=== PATIENT | female | born 1940 | race Caucasian/White ===

== ENCOUNTER 2017-06-28 10:34 | Inpatient (IN) | payer MEDICARE ==
[2017-06-28] MEDS ORDERED: SODIUM CHLORIDE 0.9% 1,000 ML IV STA (10:39)
[2017-06-28] MEDS ORDERED: SODIUM CHLORIDE 0.9% 500 ML IV STA (10:39)
--- NOTE | 2017-06-28 10:42 | ED ---
General Adult HPI - General Stated complaint: Near Syncope Time Seen by Provider: 06/28/17 10:39 Source: patient, EMS, RN notes reviewed - History of Present Illness Initial comments: 77-year-old female with no significant past medical history presents for evaluation of syncopal episode. Patient was at the grocery store, felt a warm sensation over her body, and passed out. No preceding chest pain or palpitations. No seizure activity according to EMS. EMS reported sinus tachycardia with stable blood pressure on initial evaluation. Patient was pale and diaphoretic. Color improved during transport. Patient denies any chest pain, mild cough and shortness of breath. No vomiting diarrhea. No abdominal pain. Patient has no complaints, no headache, no neck pain. No injury from the fall. Patient is not currently on any medication. She denies melena or rectal bleeding. She does report a 40 pound weight loss over the past one year and decreased appetite. - Related Data Home Medications Medication Instructions Recorded Confirmed Ibuprofen [Advil] 200 mg PO Q8HR PRN 06/28/17 06/28/17 Allergies Allergy/AdvReac Type Severity Reaction Status Date / Time No Known Allergies Allergy Verified 06/28/17 11:38 Review of Systems ROS Statement: Those systems with pertinent positive or pertinent negative responses have been documented in the HPI. ROS Other: All systems not noted in ROS Statement are negative. General Exam General appearance: alert, in no apparent distress Head exam: Present: atraumatic, normocephalic Eye exam: Present: normal appearance, PERRL, EOMI Neck exam: Present: normal inspection. Absent: tenderness, meningismus Respiratory exam: Present: normal lung sounds bilaterally. Absent: respiratory distress, wheezes Cardiovascular Exam: Present: normal rhythm, tachycardia GI/Abdominal exam: Present: soft. Absent: distended, tenderness, guarding, rebound Extremities exam: Present: normal inspection, normal capillary refill. Absent: pedal edema Back exam: Present: normal inspection, full ROM. Absent: tenderness Neurological exam: Present: alert, oriented X3, CN II-XII intact. Absent: motor sensory deficit Psychiatric exam: Present: normal affect, normal mood Skin exam: Present: warm, dry, intact, pallor. Absent: cyanosis, diaphoretic Course Vital Signs 06/28/17 06/28/17 10:48 12:00 Temperature 97.5 F L Pulse Rate 83 Pulse Rate [ 96 Sitting] Pulse Rate [ 103 H Standing] Pulse Rate [ 83 Supine] Respiratory 18 Rate Blood Pressure 156/67 Blood Pressure 149/65 [Sitting] Blood Pressure 164/66 [Standing] Blood Pressure 166/77 [Supine] O2 Sat by Pulse 100 Oximetry EKG Findings - EKG Comments: EKG Findings:: EKG shows normal sinus rhythm, moderate voltage criteria for LVH , ventricular rate 82, IL interval 156, QRS duration 84, QTC 448 no signs of acute ischemia Medical Decision Making - Medical Decision Making 77-year-old female presents with syncopal episode. She does appear pale examination vital signs are stable, EKG shows normal sinus rhythm no signs of arrhythmia or ischemia. Laboratory studies reveal normal white blood cell count , hemoglobin is found to be 5.6, this is likely the explanation of her syncopal episode. She denies any rectal bleeding, denies hematuria. Hemoccult is negative although there was minimal stool in the rectal vault. Urinalysis is pending. Patient is transfused 2 units of packed RBCs in the emergency department. She will be admitted for further evaluation and treatment. Diagnosis: Syncope, anemia - Lab Data Result diagrams: 06/28/17 11:51 06/28/17 11:51 Lab Results 06/28/17 06/28/17 06/28/17 Range/Units 10:41 11:51 11:51 WBC 8.9 (3.8-10.6) k/uL RBC 3.55 L (3.80-5.40) m/uL Hgb 5.6 L* (11.4-16.0) gm/dL Hct 23.2 L (34.0-46.0) % MCV 65.4 L (80.0-100.0) fL MCH 15.7 L (25.0-35.0) pg MCHC 24.0 L (31.0-37.0) g/dL RDW 17.4 H (11.5-15.5) % Plt Count 665 H (150-450) k/uL Neutrophils % 78 % Lymphocytes % 12 % Monocytes % 6 % Eosinophils % 2 % Basophils % 1 % Neutrophils # 7.0 (1.3-7.7) k/uL Lymphocytes # 1.1 (1.0-4.8) k/uL Monocytes # 0.5 (0-1.0) k/uL Eosinophils # 0.2 (0-0.7) k/uL Basophils # 0.1 (0-0.2) k/uL Hypochromasia Marked Anisocytosis Slight Microcytosis Marked Sodium 142 140 (137-145) mmol/L Potassium 3.3 L 4.4 (3.5-5.1) mmol/L Chloride 116 H 108 H (98-107) mmol/L Carbon Dioxide 17 L 20 L (22-30) mmol/L Anion Gap 9 12 mmol/L BUN 15 19 H (7-17) mg/dL Creatinine 0.81 0.99 (0.52-1.04) mg/dL Est GFR (MDRD) Af Amer >60 >60 (>60 ml/min/1.73 sqM) Est GFR (MDRD) Non-Af >60 54 (>60 ml/min/1.73 sqM) Glucose 98 103 H (74-99) mg/dL Calcium 7.4 L 9.7 (8.4-10.2) mg/dL Magnesium 1.6 2.1 (1.6-2.3) mg/dL Total Bilirubin 0.2 0.4 (0.2-1.3) mg/dL AST 11 L 19 (14-36) U/L ALT 25 28 (9-52) U/L Alkaline Phosphatase 43 64 (38-126) U/L Total Creatine Kinase (30-135) U/L CK-MB (CK-2) (0.0-2.4) ng/mL CK-MB (CK-2) Rel Index Troponin I (0.000-0.034) ng/mL Total Protein 4.8 L 6.7 (6.3-8.2) g/dL Albumin 2.4 L 3.6 (3.5-5.0) g/dL Stool Occult Blood (Negative) 06/28/17 06/28/17 Range/Units 11:51 12:32 WBC (3.8-10.6) k/uL RBC (3.80-5.40) m/uL Hgb (11.4-16.0) gm/dL Hct (34.0-46.0) % MCV (80.0-100.0) fL MCH (25.0-35.0) pg MCHC (31.0-37.0) g/dL RDW (11.5-15.5) % Plt Count (150-450) k/uL Neutrophils % % Lymphocytes % % Monocytes % % Eosinophils % % Basophils % % Neutrophils # (1.3-7.7) k/uL Lymphocytes # (1.0-4.8) k/uL Monocytes # (0-1.0) k/uL Eosinophils # (0-0.7) k/uL Basophils # (0-0.2) k/uL Hypochromasia Anisocytosis Microcytosis Sodium (137-145) mmol/L Potassium (3.5-5.1) mmol/L Chloride (98-107) mmol/L Carbon Dioxide (22-30) mmol/L Anion Gap mmol/L BUN (7-17) mg/dL Creatinine (0.52-1.04) mg/dL Est GFR (MDRD) Af Amer (>60 ml/min/1.73 sqM) Est GFR (MDRD) Non-Af (>60 ml/min/1.73 sqM) Glucose (74-99) mg/dL Calcium (8.4-10.2) mg/dL Magnesium (1.6-2.3) mg/dL Total Bilirubin (0.2-1.3) mg/dL AST (14-36) U/L ALT (9-52) U/L Alkaline Phosphatase (38-126) U/L Total Creatine Kinase 29 L (30-135) U/L CK-MB (CK-2) 0.3 (0.0-2.4) ng/mL CK-MB (CK-2) Rel Index 1.0 Troponin I <0.012 (0.000-0.034) ng/mL Total Protein (6.3-8.2) g/dL Albumin (3.5-5.0) g/dL Stool Occult Blood Negative (Negative) Disposition Clinical Impression: Syncope, Symptomatic anemia Disposition: ADMITTED IP TO THIS [facility] Condition: Stable Referrals: None,Stated [Primary Care Provider] - 1-2 days Decision to Admit Reason: Admit from EC Decision Date: 06/28/17 Decision Time: 13:34
--- NOTE | 2017-06-28 11:22 | XR ---
EXAMINATION TYPE: XR chest 2V DATE OF EXAM: 06/28/2017 COMPARISON: NONE TECHNIQUE: PA and lateral views submitted. HISTORY: Shortness of breath FINDINGS: The lungs are clear and there is no pneumothorax, pleural effusion, or focal pneumonia. Biapical pl eural thickening and calcification. Hyperinflation noted. Atherosclerotic change aorta. Degenerative change of the spine. No overt failure. No focal pneumonia. Diffuse osteopenia and arthropathy of the shoulders. IMPRESSION: 1. No acute process. Correlate for COPD. Pleural thickening and calcification suggestive possibility of asbestosis related disease. Correlate clinically.
[2017-06-28 11:25] LABS: Anion Gap 9 mmol/L
[2017-06-28 12:21] LABS: Anisocytosis Slight; Basophils # (A) 0.1 k/uL (0-0.2); Basophils % (A) 1 %; Eosinophils # (A) 0.2 k/uL (0-0.7); Eosinophils % (A) 2 %; HCT 23.2 % (34.0-46.0); Hypochromasia Marked; Lymphocytes # (A) 1.1 k/uL (1.0-4.8); Lymphocytes % (A) 12 %; MCH 15.7 pg (25.0-35.0); MCV 65.4 fL (80.0-100.0); Mean Platelet Volume 6.1; Microcytosis Marked; Monocytes # (A) 0.5 k/uL (0-1.0); Monocytes % (A) 6 %; Neutrophils % (A) 78 %; Platelet Count 665 k/uL (150-450); RBC 3.55 m/uL (3.80-5.40); RDW 17.4 % (11.5-15.5); WBC 8.9 k/uL (3.8-10.6)
[2017-06-28 12:23] LABS: HGB 5.6 gm/dL (11.4-16.0)
[2017-06-28 12:55] LABS: ALT 28 U/L (9-52); AST 19 U/L (14-36); Albumin 3.6 g/dL (3.5-5.0); Alkaline Phosphatase 64 U/L (38-126); Anion Gap 12 mmol/L; Blood Urea Nitrogen 19 mg/dL (7-17); Calcium 9.7 mg/dL (8.4-10.2); Carbon Dioxide 20 mmol/L (22-30); Chloride 108 mmol/L (98-107); Glucose 103 mg/dL (74-99); Magnesium 2.1 mg/dL (1.6-2.3); Potassium 4.4 mmol/L (3.5-5.1); Sodium 140 mmol/L (137-145); Total Bilirubin 0.4 mg/dL (0.2-1.3); Total Protein 6.7 g/dL (6.3-8.2)
[2017-06-28 12:56] LABS: Creatine Kinase 29 U/L (30-135); Creatine Kinase MB 0.3 ng/mL (0.0-2.4); Troponin I <0.012 ng/mL (0.000-0.034)
[2017-06-28 13:09] LABS: Glucose 98 mg/dL (74-99)
[2017-06-28 13:10] LABS: Potassium 3.3 mmol/L (3.5-5.1); Sodium 142 mmol/L (137-145)
[2017-06-28 13:14] LABS: Carbon Dioxide 17 mmol/L (22-30); Chloride 116 mmol/L (98-107)
[2017-06-28 13:15] LABS: Blood Urea Nitrogen 15 mg/dL (7-17)
[2017-06-28 13:16] LABS: Calcium 7.4 mg/dL (8.4-10.2); Magnesium 1.6 mg/dL (1.6-2.3)
[2017-06-28 13:17] LABS: Albumin 2.4 g/dL (3.5-5.0); Total Bilirubin 0.2 mg/dL (0.2-1.3); Total Protein 4.8 g/dL (6.3-8.2)
[2017-06-28 13:18] LABS: ALT 25 U/L (9-52); AST 11 U/L (14-36)
[2017-06-28 13:19] LABS: Alkaline Phosphatase 43 U/L (38-126)
[2017-06-28] MEDS ORDERED: NALOXONE 0.4 MG/ML 1 ML VIAL IV PRN (13:34)
[2017-06-28 13:47] LABS: Prothrombin Time 10.3 sec (9.0-12.0)
[2017-06-28 14:04] LABS: Partial Thromboplastin Time 21.5 sec (22.0-30.0)
--- NOTE | 2017-06-28 14:46 | P.HPIM ---
History of Present Illness H&P Date: 06/28/17 Chief Complaint: Past out arrived here for by EMS The patient is a 77-year-old female with no significant past medical history who presents to the ER via EMS with chief complaint of passing out. Apparently the patient was at [employer] doing some shopping when she became lightheaded and dizzy and reportedly passed out, there is no reports of head trauma and the patient is currently denying any pain, she was apparently out for up to 10 minutes, there is no loss of bowel or bladder control. On arrival EMS describes the patient is pale and diaphoretic. The patient had been previously healthy but has not seen a doctor in at least 30 years, she had been complaining of increasing weakness and fatigue and has been having a poor appetite and reports approximately 40 pound unintentional weight loss over the last year, she denies any smoking, or drinking,she denies any abdominal pain, Bright red blood per rectum or dark melanotic stools. In the ER the patient was noted to have a significant macrocytic anemia with a hemoglobin of 5.9 and was slightly tachycardic in the low 100s. Hemoccult was negative Review of Systems Constitutional: Patient reports no fever, no chills, Eyes: Patient reports no double vision, no visual changes ENT: Patient reports no rhinorrhea, no post nasal drip, no sore throat Cardiovascular: Patient reports no chest, no edema, no palpitations, no syncope , no orthopnea, no paroxysmal nocturnal dyspnea. Respiratory: Patient reports no dyspnea, no cough, no wheeze Gastrointestinal: Patient reports no nausea, no vomiting, no constipation, no diarrhea Genitourinary: Patient reports no dysuria, no urinary frequency, no hematuria. Musculoskeletal: Patient reports no unusual joint pain, no joint swelling or weakness. Patient reports no muscular pain. Psychiatric: Patient reports no changes in mood, no sleeping problems. Patient reports no changes in memory. Endocrine: Patient reports no thirst, no polyuria, no cold intolerance, no heat intolerance. Neurological: Patient reports no unusual paresthesias, no seizures, no paresis , no paralysis, no facila droop, no headache. Heme/Lymphatic: Patient reports no easy bruising, no bleeding tendency, no lymphadenopathy. Allergic/ Immunologic: Patient reports no recent allergic reactions or immunologic history. Skin: Patient reports no rashes or unusual lesions. Past Medical History Past Medical History: No Reported History History of Any Multi-Drug Resistant Organisms: None Reported Past Surgical History: Appendectomy Past Psychological History: No Psychological Hx Reported Smoking Status: Never smoker Past Alcohol Use History: None Reported Past Drug Use History: None Reported Medications and Allergies Home Medications Medication Instructions Recorded Confirmed Type Ibuprofen [Advil] 200 mg PO Q8HR PRN 06/28/17 06/28/17 History Allergies Allergy/AdvReac Type Severity Reaction Status Date / Time No Known Allergies Allergy Verified 06/28/17 11:38 Physical Exam Vitals: Vital Signs Temp Pulse Pulse Pulse Pulse Resp BP 06/28/17 13:38 71 18 161/71 06/28/17 12:00 96 103 H 83 06/28/17 10:48 97.5 F L 83 18 156/67 BP BP BP Pulse Ox 06/28/17 13:38 98 06/28/17 12:00 149/65 164/66 166/77 06/28/17 10:48 100 Intake and Output 06/27/17 06/28/17 06/28/17 22:59 06:59 14:59 Other: Weight 61.689 kg Patient Weight 06/29/17 06:59 Weight 61.689 kg Constitutional: No acute distress, conversant, pleasant Eyes: Anicteric sclerae, moist conjunctiva, no lid-lag, PERRLA ENMT: NC/AT,Oropharynx clear, no erythema, exudates Neck:Supple, FROM, no masses, or JVD, No carotid bruits; No thyromegaly Lungs: Clear to auscultation, Clear to percussion, Normal respiratory effort, no accessory muscle use Cardiovascular: Heart regular in rate and rhythm, No murmurs, gallops, or rubs no peripheral edema Abdominal: Soft Nontender, nom distended, no guarding, no rebound or rigidity, Normoactive bowel sounds No hepatomegaly, No splenomegaly, No palpable mass No abdominal wall hernia noted Skin: Normal temperature, tone, texture, turgor, No induration No subcutaneous nodules, No rash, lesions, No ulcers Extremities:No digital cyanosis No clubbing, Pedal pulses intact and symmetrical Radial pulses intact and symmetrical Normal gait and station, No calf tenderness Psychiatric: Alert and oriented to person, place and time, Appropriate affect Intact judgement Neuro: Muscles Strength 5/5 in all 4 extremities, Sensation to light touch grossly present throughout, Cranial nerves II-XII grossly intact. No focal sensory deficits Results CBC & Chem 7: 06/28/17 11:51 06/28/17 11:51 Labs: Abnormal Lab Results - Last 24 Hours (Table) 06/28/17 06/28/17 06/28/17 Range/Units 10:41 11:51 11:51 RBC 3.55 L (3.80-5.40) m/uL Hgb 5.6 L* (11.4-16.0) gm/dL Hct 23.2 L (34.0-46.0) % MCV 65.4 L (80.0-100.0) fL MCH 15.7 L (25.0-35.0) pg MCHC 24.0 L (31.0-37.0) g/dL RDW 17.4 H (11.5-15.5) % Plt Count 665 H (150-450) k/uL APTT (22.0-30.0) sec Potassium 3.3 L (3.5-5.1) mmol/L Chloride 116 H 108 H (98-107) mmol/L Carbon Dioxide 17 L 20 L (22-30) mmol/L BUN 19 H (7-17) mg/dL Glucose 103 H (74-99) mg/dL Calcium 7.4 L (8.4-10.2) mg/dL AST 11 L (14-36) U/L Total Creatine Kinase (30-135) U/L Total Protein 4.8 L (6.3-8.2) g/dL Albumin 2.4 L (3.5-5.0) g/dL 06/28/17 06/28/17 Range/Units 11:51 13:11 RBC (3.80-5.40) m/uL Hgb (11.4-16.0) gm/dL Hct (34.0-46.0) % MCV (80.0-100.0) fL MCH (25.0-35.0) pg MCHC (31.0-37.0) g/dL RDW (11.5-15.5) % Plt Count (150-450) k/uL APTT 21.5 L (22.0-30.0) sec Potassium (3.5-5.1) mmol/L Chloride (98-107) mmol/L Carbon Dioxide (22-30) mmol/L BUN (7-17) mg/dL Glucose (74-99) mg/dL Calcium (8.4-10.2) mg/dL AST (14-36) U/L Total Creatine Kinase 29 L (30-135) U/L Total Protein (6.3-8.2) g/dL Albumin (3.5-5.0) g/dL Assessment and Plan (1) Symptomatic anemia Current Visit: Yes Status: Acute Code(s): D64.9 - ANEMIA, UNSPECIFIED SNOMED Code(s): 028633104 (2) Syncope Current Visit: Yes Status: Acute Code(s): R55 - SYNCOPE AND COLLAPSE SNOMED Code(s): 969888463 (3) Unintentional weight loss Current Visit: Yes Status: Acute Code(s): R63.4 - ABNORMAL WEIGHT LOSS SNOMED Code(s): 124856111 Plan: Patient is admitted with severe symptomatic microcytic anemia with a hemoglobin of 5.5 after having an syncopal episode. She stopped and crossed she'll be transfused 2 units of packed RBCs, will check iron studies, coagulation profile and consult hematology oncology for further recommendations. We'll continue with the workup for syncope with a CT of the head and a 2-D echocardiogram, will also check it TSH, place the patient on fall precautions and consult physical therapy to evaluate and treat her weakness. Will also order CT abdomen/ pelvis w/o contrast to eval unintentional weight loss. Continue to follow her clinical course
--- NOTE | 2017-06-28 15:01 | CT ---
EXAMINATION TYPE: CT brain wo con DATE OF EXAM: 06/28/2017 COMPARISON: NONE HISTORY: Near syncopal episode CT DLP: 927 mGycm Automated exposure control for dose reduction was used. FINDINGS: There is no acute intracranial hemorrhage or midline shift identified. There is diffuse v entricular and sulcal prominence consistent with diffuse age-related cerebral atrophy. There is low- attenuation in the periventricular white matter consistent with chronic small vessel ischemic change. Specifically within the anterior limb of the left internal capsule CSF attenuated old lacunar injury is noted. Moderate mucosal thickening is seen within the posterior ethmoidal and right sphenoid sinu ses. 9 mm mucosal retention cyst is present within the left sphenoid sinus. Remaining paranasal sinus es are clear as are the mastoid air cells. The globes are intact. No suspicious extra axial fluid co llection. Incidental note is made of atherosclerosis of the intracranial vasculature. IMPRESSION: 1. No acute intracranial hemorrhage or midline shift. 2. There is diffuse age-related cerebral atrophy and chronic small vessel ischemic change noted. 3. Moderate mucosal thickening within the posterior right ethmoid and sphenoid sinuses as well as 9 m m left sphenoid sinus mucosal retention cyst. 4. 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
[2017-06-28 15:09] LABS: Appearance,Urine Clear (Clear); Bacteria,Urine Many /hpf; Bilirubin,Urine Negative (Negative); Blood,Urine Trace (Negative); Color,Urine Light Yellow; Glucose,Urine (UA) Negative (Negative); Ketones,Urine Negative (Negative); Leukocyte Esterase,Urine Trace (Negative); Mucus,Urine Rare /hpf; Nitrite,Urine Negative (Negative); Protein,Urine Negative (Negative); RBC,Urine 1 /hpf (0-5); Squamous Epithelial Cell,Urine 1 /hpf (0-4); Urobilinogen,Urine <2.0 mg/dL (<2.0); WBC,Urine 2 /hpf (0-5)
--- NOTE | 2017-06-28 15:42 | CT ---
EXAMINATION TYPE: CT abdomen pelvis wo con DATE OF EXAM: 06/28/2017 COMPARISON: NONE HISTORY: 40 lb weight loss unintentional. Severe microcytic anemia. CT DLP: 878.00 mGycm Automated exposure control for dose reduction was used. TECHNIQUE: Helical acquisition of images was performed from the lung bases through the pelvis. FINDINGS: Lack of intravenous and oral contrast limits evaluation of the hollow and solid viscera. LUNG BASES: Small hiatal hernia is present. LIVER/GB: Numerous hypoattenuated hepatic lesions are seen that appear low attenuation and measure fl uid Hounsfield units measuring up to 2.4 cm within the left hepatic lobe. No intrahepatic biliary du ctal dilatation. Gallbladder is unremarkable. PANCREAS: No significant abnormality is seen. SPLEEN: No significant abnormality is seen. ADRENALS: No significant abnormality is seen. KIDNEYS: Approximately 2.1 cm left exophytic renal cyst is seen as well as bilateral small renal sinu s cysts, right greater than left. Additional probable left upper pole renal cyst is not well evaluate d without contrast. FREE AIR: No free air is visualized ADENOPATHY: Clustered right lower quadrant lymph nodes are seen as described in the bowel section. O therwise no enlarged lymph nodes are present within the abdomen or pelvis. REPRODUCTIVE ORGANS: Numerous calcifications are seen within the myometrium, some appear vascular and others may be from degenerative uterine fibroids. URINARY BLADDER: Decompressed and incompletely evaluated. OSSEOUS STRUCTURES: Mild multilevel degenerative changes of the thoracic spine are noted. No suspici ous osseous lesions are seen. BOWEL: There is masslike soft tissue attenuation with matting of the small bowel at the ileocecal va lve with bowel wall thickening of the terminal ileum. Surrounding inflammatory change is fat strandin g in multiple prominent lymph nodes are seen. Fixed extends inferiorly to image 63. There is decompre ssion of the hepatic flexure and transverse colon. OTHER: Internally the aorta is of low attenuation in comparison to that of the aortic wall relating t o the known anemia. IMPRESSION: 1. MASSLIKE DENSITY OF THE CECUM AND TERMINAL ILEUM WITH SURROUNDING MATTED AREAS OF SMALL BOWEL. INF LAMMATORY CHANGE AND LOCAL ADENOPATHY IS SEEN AND THEREFORE THESE FINDINGS COULD BE INFLAMMATORY, INF ECTIOUS OR NEOPLASTIC. COLONOSCOPY COULD BE PERFORMED FOR FURTHER EVALUATION. 2. MULTIPLE FLUID ATTENUATED HEPATIC LESIONS FAVORING CYSTS, HOWEVER GIVEN THE ABOVE FINDING CENTRALL Y NECROTIC METASTASIS IS ALSO POSSIBLE AND CONFIRMATION WITH ENHANCED MR COULD BE PERFORMED. 3. LOW ATTENUATION OF THE ABDOMINAL AORTA RELATING TO THE KNOWN ANEMIA.
[2017-06-29 03:58] LABS: Anisocytosis Moderate; Basophils % (A) 1 %; Eosinophils # (A) 0.3 k/uL (0-0.7); Eosinophils % (A) 5 %; HCT 27.2 % (34.0-46.0); Hypochromasia Marked; Lymphocytes # (A) 1.3 k/uL (1.0-4.8); Lymphocytes % (A) 21 %; MCH 18.4 pg (25.0-35.0); MCHC 27.5 g/dL (31.0-37.0); Mean Platelet Volume 6.3; Microcytosis Marked; Monocytes # (A) 0.4 k/uL (0-1.0); Monocytes % (A) 6 %; Neutrophils # (A) 3.9 k/uL (1.3-7.7); Neutrophils % (A) 64 %; Platelet Count 496 k/uL (150-450); Poikilocytosis Marked; RBC 4.06 m/uL (3.80-5.40); RDW 21.3 % (11.5-15.5)
[2017-06-29 04:18] LABS: Anion Gap 10 mmol/L; Blood Urea Nitrogen 16 mg/dL (7-17); Calcium 9.5 mg/dL (8.4-10.2); Carbon Dioxide 23 mmol/L (22-30); Chloride 109 mmol/L (98-107); Glucose 95 mg/dL (74-99); Magnesium 2.2 mg/dL (1.6-2.3); Potassium 4.4 mmol/L (3.5-5.1); Sodium 142 mmol/L (137-145)
[2017-06-29 04:31] LABS: HGB 7.5 gm/dL (11.4-16.0)
[2017-06-29 06:36] LABS: Anisocytosis Moderate; Basophils % (A) 1 %; Eosinophils # (A) 0.3 k/uL (0-0.7); Eosinophils % (A) 5 %; HCT 26.3 % (34.0-46.0); HGB 7.4 gm/dL (11.4-16.0); Hypochromasia Marked; Lymphocytes # (A) 1.2 k/uL (1.0-4.8); Lymphocytes % (A) 21 %; MCH 18.9 pg (25.0-35.0); MCHC 28.1 g/dL (31.0-37.0); MCV 67.2 fL (80.0-100.0); Mean Platelet Volume 6.5; Microcytosis Marked; Monocytes # (A) 0.3 k/uL (0-1.0); Monocytes % (A) 6 %; Neutrophils # (A) 3.8 k/uL (1.3-7.7); Neutrophils % (A) 67 %; Platelet Count 510 k/uL (150-450); Poikilocytosis Marked; RBC 3.92 m/uL (3.80-5.40); RDW 21.3 % (11.5-15.5); WBC 5.7 k/uL (3.8-10.6)
--- NOTE | 2017-06-29 07:59 | P.PN ---
Subjective Progress Note Date: 06/29/17 Patient is feeling much better today after having 2 units of packed RBCs transfused, she denies any nausea or vomiting, she denies abdominal pain or constipation. Discussed her imaging results and ongoing plan of care, she voiced understanding and I also discussed this with her son Marvel ([email or web address]) Objective - Vital Signs Vital signs: Vital Signs Temp 97.6 F 06/29/17 04:00 Pulse 86 06/29/17 04:00 Resp 18 06/29/17 04:00 BP 145/67 06/29/17 04:00 Pulse Ox 98 06/29/17 04:00 Intake & Output 06/28/17 06/29/17 06/29/17 18:59 06:59 18:59 Intake Total 310 620 100 Balance 310 620 100 Weight 62 kg 61.7 kg Intake: IV 310 PRBC 310 Oral 100 Blood Product 310 310 Rc Pheresis As-3 Unit 310 [id number] Rc Pheresis As-3 Unit 0 310 [id number] Other: Voiding Method Toilet Toilet - Exam Constitutional: No acute distress, conversant, pleasant Eyes: Anicteric sclerae, moist conjunctiva, no lid-lag, PERRLA ENMT: NC/AT,Oropharynx clear, no erythema, exudates Neck:Supple, FROM, no masses, or JVD, No carotid bruits; No thyromegaly Lungs: Clear to auscultation, Clear to percussion, Normal respiratory effort, no accessory muscle use Cardiovascular: Heart regular in rate and rhythm, No murmurs, gallops, or rubs no peripheral edema Abdominal: Soft Nontender, nom distended, no guarding, no rebound or rigidity, Normoactive bowel sounds No hepatomegaly, No splenomegaly, No palpable mass No abdominal wall hernia noted Skin: Normal temperature, tone, texture, turgor, No induration No subcutaneous nodules, No rash, lesions, No ulcers Extremities:No digital cyanosis No clubbing, Pedal pulses intact and symmetrical Radial pulses intact and symmetrical Normal gait and station, No calf tenderness Psychiatric: Alert and oriented to person, place and time, Appropriate affect Intact judgement Neuro: Muscles Strength 5/5 in all 4 extremities, Sensation to light touch grossly present throughout, Cranial nerves II-XII grossly intact. No focal sensory deficits - Labs CBC & Chem 7: 06/29/17 06:07 01/05/18 03:36 Labs: Abnormal Lab Results - Last 24 Hours (Table) 06/28/17 06/28/17 06/28/17 Range/Units 10:41 11:51 11:51 RBC 3.55 L (3.80-5.40) m/uL Hgb 5.6 L* (11.4-16.0) gm/dL Hct 23.2 L (34.0-46.0) % MCV 65.4 L (80.0-100.0) fL MCH 15.7 L (25.0-35.0) pg MCHC 24.0 L (31.0-37.0) g/dL RDW 17.4 H (11.5-15.5) % Plt Count 665 H (150-450) k/uL APTT (22.0-30.0) sec Potassium 3.3 L (3.5-5.1) mmol/L Chloride 116 H 108 H (98-107) mmol/L Carbon Dioxide 17 L 20 L (22-30) mmol/L BUN 19 H (7-17) mg/dL Glucose 103 H (74-99) mg/dL Calcium 7.4 L (8.4-10.2) mg/dL AST 11 L (14-36) U/L Total Creatine Kinase (30-135) U/L Total Protein 4.8 L (6.3-8.2) g/dL Albumin 2.4 L (3.5-5.0) g/dL Urine Blood (Negative) Ur Leukocyte Esterase (Negative) Urine Bacteria (None) /hpf Urine Mucus (None) /hpf Crossmatch 06/28/17 06/28/17 06/28/17 Range/Units 11:51 13:11 13:11 RBC (3.80-5.40) m/uL Hgb (11.4-16.0) gm/dL Hct (34.0-46.0) % MCV (80.0-100.0) fL MCH (25.0-35.0) pg MCHC (31.0-37.0) g/dL RDW (11.5-15.5) % Plt Count (150-450) k/uL APTT 21.5 L (22.0-30.0) sec Potassium (3.5-5.1) mmol/L Chloride (98-107) mmol/L Carbon Dioxide (22-30) mmol/L BUN (7-17) mg/dL Glucose (74-99) mg/dL Calcium (8.4-10.2) mg/dL AST (14-36) U/L Total Creatine Kinase 29 L (30-135) U/L Total Protein (6.3-8.2) g/dL Albumin (3.5-5.0) g/dL Urine Blood (Negative) Ur Leukocyte Esterase (Negative) Urine Bacteria (None) /hpf Urine Mucus (None) /hpf Crossmatch See Detail 06/28/17 06/29/17 06/29/17 Range/Units 14:55 03:36 03:36 RBC (3.80-5.40) m/uL Hgb 7.5 L D (11.4-16.0) gm/dL Hct 27.2 L (34.0-46.0) % MCV 67.0 L (80.0-100.0) fL MCH 18.4 L (25.0-35.0) pg MCHC 27.5 L (31.0-37.0) g/dL RDW 21.3 H (11.5-15.5) % Plt Count 496 H (150-450) k/uL APTT (22.0-30.0) sec Potassium (3.5-5.1) mmol/L Chloride 109 H (98-107) mmol/L Carbon Dioxide (22-30) mmol/L BUN (7-17) mg/dL Glucose (74-99) mg/dL Calcium (8.4-10.2) mg/dL AST (14-36) U/L Total Creatine Kinase (30-135) U/L Total Protein (6.3-8.2) g/dL Albumin (3.5-5.0) g/dL Urine Blood Trace H (Negative) Ur Leukocyte Esterase Trace H (Negative) Urine Bacteria Many H (None) /hpf Urine Mucus Rare H (None) /hpf Crossmatch 06/29/17 Range/Units 06:07 RBC (3.80-5.40) m/uL Hgb 7.4 L (11.4-16.0) gm/dL Hct 26.3 L (34.0-46.0) % MCV 67.2 L (80.0-100.0) fL MCH 18.9 L (25.0-35.0) pg MCHC 28.1 L (31.0-37.0) g/dL RDW 21.3 H (11.5-15.5) % Plt Count 510 H (150-450) k/uL APTT (22.0-30.0) sec Potassium (3.5-5.1) mmol/L Chloride (98-107) mmol/L Carbon Dioxide (22-30) mmol/L BUN (7-17) mg/dL Glucose (74-99) mg/dL Calcium (8.4-10.2) mg/dL AST (14-36) U/L Total Creatine Kinase (30-135) U/L Total Protein (6.3-8.2) g/dL Albumin (3.5-5.0) g/dL Urine Blood (Negative) Ur Leukocyte Esterase (Negative) Urine Bacteria (None) /hpf Urine Mucus (None) /hpf Crossmatch - Imaging and Cardiology CT scan - abdomen: report reviewed (Masslike density of the cecum and terminal ileum with surrounding matted areas of small bowel inflammatory change and local adenopathies also seen), image reviewed (Multiple fluid attenuated hepatic lesions favoring cysts) CT Scan - head: report reviewed (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, age-related cerebral atrophy and chronic vessel ischemic change noted, moderate mucosal thickening within the posterior right ethmoid and sphenoid sinuses, 9 mm sphenoid sinus mucosal retention cyst) Assessment and Plan (1) Symptomatic anemia Narrative/Plan: * Hemoglobin with appropriate response up to 7.5 after 2 units packed RBC transfusion * Iron studies ordered but not drawn we'll reorder them today * Noted microcytic anemia likely secondary to underlying GI malignancy CT evidence of cecal and terminal ileal mass * Hematology oncology consulted awaiting further recommendations Current Visit: Yes Status: Acute Code(s): D64.9 - ANEMIA, UNSPECIFIED SNOMED Code(s): 745930518 (2) Syncope Narrative/Plan: * Secondary to severe symptomatic microcytic anemia Current Visit: Yes Status: Acute Code(s): R55 - SYNCOPE AND COLLAPSE SNOMED Code(s): 911944075 (3) Cecum mass Narrative/Plan: * Reviewed CT abdomen and pelvis results concerning for underlying GI malignancy noted cecal and terminal ileal mass with regional adenopathy and possible metastasis * We'll consult general surgery and GI for further recommendations Current Visit: Yes Status: Acute Code(s): K63.9 - DISEASE OF INTESTINE, UNSPECIFIED SNOMED Code(s): 182475982 (4) Unintentional weight loss Narrative/Plan: * Concern for underlying malignancy GI Current Visit: Yes Status: Acute Code(s): R63.4 - ABNORMAL WEIGHT LOSS SNOMED Code(s): 853939409
[2017-06-29] MEDS ORDERED: PEG 3350-NA SULF,BICARB,CL/KCL 4,000 ML BOTTLE PO ONE ×2 (11:01→17:00)
--- NOTE | 2017-06-29 11:12 | P.GSHP ---
History of Present Illness H&P Date: 06/29/17 Chief Complaint: Anemia, cecal mass This a 77-year-old female who is admitted through the emergency after a syncopal event. Patient was worked up and found to have severe anemia. Patient received blood transfusions yesterday. Patient denies any history of significant abdominal pain or rectal bleeding. She does not currently see any medical doctors. Past Medical History Past Medical History: No Reported History Additional Past Medical History / Comment(s): OCC HEARTBURN TAKES OTC TUMS. FREQUENT NITE TIME URINATION History of Any Multi-Drug Resistant Organisms: None Reported Past Surgical History: Appendectomy Additional Past Surgical History / Comment(s): CATARACTS- LENS IMPLANTS Past Anesthesia/Blood Transfusion Reactions: No Reported Reaction Additional Past Anesthesia/Blood Transfusion Reaction / Comment(s): "I DON'T LIKE HEIGHTS" Past Psychological History: No Psychological Hx Reported Smoking Status: Never smoker Past Alcohol Use History: None Reported Past Drug Use History: None Reported - Past Family History Father History Unknown: Yes Mother History Unknown: Yes Medications and Allergies Home Medications Medication Instructions Recorded Confirmed Type Ibuprofen [Advil] 200 mg PO Q8HR PRN 06/28/17 06/28/17 History Allergies Allergy/AdvReac Type Severity Reaction Status Date / Time No Known Allergies Allergy Verified 06/28/17 11:38 Surgical - Exam Vital Signs Temp Pulse Resp BP Pulse Ox 97.5 F L 83 18 156/67 100 06/28/17 10:48 06/28/17 10:48 06/28/17 10:48 06/28/17 10:48 06/28/17 10:48 - General well developed, no distress - Eyes PERRL - ENT normal pinna - Neck no masses - Respiratory normal expansion - Cardiovascular Rhythm: regular - Abdomen Abdomen: soft, non tender Results - Labs 06/29/17 06:07 06/29/17 03:36 Abnormal Lab Results - Last 24 Hours (Table) 06/28/17 06/28/17 06/28/17 Range/Units 10:41 11:51 11:51 RBC 3.55 L (3.80-5.40) m/uL Hgb 5.6 L* (11.4-16.0) gm/dL Hct 23.2 L (34.0-46.0) % MCV 65.4 L (80.0-100.0) fL MCH 15.7 L (25.0-35.0) pg MCHC 24.0 L (31.0-37.0) g/dL RDW 17.4 H (11.5-15.5) % Plt Count 665 H (150-450) k/uL APTT (22.0-30.0) sec Potassium 3.3 L (3.5-5.1) mmol/L Chloride 116 H 108 H (98-107) mmol/L Carbon Dioxide 17 L 20 L (22-30) mmol/L BUN 19 H (7-17) mg/dL Glucose 103 H (74-99) mg/dL Calcium 7.4 L (8.4-10.2) mg/dL AST 11 L (14-36) U/L Total Creatine Kinase (30-135) U/L Total Protein 4.8 L (6.3-8.2) g/dL Albumin 2.4 L (3.5-5.0) g/dL Urine Blood (Negative) Ur Leukocyte Esterase (Negative) Urine Bacteria (None) /hpf Urine Mucus (None) /hpf Crossmatch 06/28/17 06/28/17 06/28/17 Range/Units 11:51 13:11 13:11 RBC (3.80-5.40) m/uL Hgb (11.4-16.0) gm/dL Hct (34.0-46.0) % MCV (80.0-100.0) fL MCH (25.0-35.0) pg MCHC (31.0-37.0) g/dL RDW (11.5-15.5) % Plt Count (150-450) k/uL APTT 21.5 L (22.0-30.0) sec Potassium (3.5-5.1) mmol/L Chloride (98-107) mmol/L Carbon Dioxide (22-30) mmol/L BUN (7-17) mg/dL Glucose (74-99) mg/dL Calcium (8.4-10.2) mg/dL AST (14-36) U/L Total Creatine Kinase 29 L (30-135) U/L Total Protein (6.3-8.2) g/dL Albumin (3.5-5.0) g/dL Urine Blood (Negative) Ur Leukocyte Esterase (Negative) Urine Bacteria (None) /hpf Urine Mucus (None) /hpf Crossmatch See Detail 06/28/17 06/29/17 06/29/17 Range/Units 14:55 03:36 03:36 RBC (3.80-5.40) m/uL Hgb 7.5 L D (11.4-16.0) gm/dL Hct 27.2 L (34.0-46.0) % MCV 67.0 L (80.0-100.0) fL MCH 18.4 L (25.0-35.0) pg MCHC 27.5 L (31.0-37.0) g/dL RDW 21.3 H (11.5-15.5) % Plt Count 496 H (150-450) k/uL APTT (22.0-30.0) sec Potassium (3.5-5.1) mmol/L Chloride 109 H (98-107) mmol/L Carbon Dioxide (22-30) mmol/L BUN (7-17) mg/dL Glucose (74-99) mg/dL Calcium (8.4-10.2) mg/dL AST (14-36) U/L Total Creatine Kinase (30-135) U/L Total Protein (6.3-8.2) g/dL Albumin (3.5-5.0) g/dL Urine Blood Trace H (Negative) Ur Leukocyte Esterase Trace H (Negative) Urine Bacteria Many H (None) /hpf Urine Mucus Rare H (None) /hpf Crossmatch 06/29/17 Range/Units 06:07 RBC (3.80-5.40) m/uL Hgb 7.4 L (11.4-16.0) gm/dL Hct 26.3 L (34.0-46.0) % MCV 67.2 L (80.0-100.0) fL MCH 18.9 L (25.0-35.0) pg MCHC 28.1 L (31.0-37.0) g/dL RDW 21.3 H (11.5-15.5) % Plt Count 510 H (150-450) k/uL APTT (22.0-30.0) sec Potassium (3.5-5.1) mmol/L Chloride (98-107) mmol/L Carbon Dioxide (22-30) mmol/L BUN (7-17) mg/dL Glucose (74-99) mg/dL Calcium (8.4-10.2) mg/dL AST (14-36) U/L Total Creatine Kinase (30-135) U/L Total Protein (6.3-8.2) g/dL Albumin (3.5-5.0) g/dL Urine Blood (Negative) Ur Leukocyte Esterase (Negative) Urine Bacteria (None) /hpf Urine Mucus (None) /hpf Crossmatch Diabetes panel 06/28/17 06/28/17 06/29/17 Range/Units 10:41 11:51 03:36 Sodium 142 140 142 (137-145) mmol/L Potassium 3.3 L 4.4 4.4 (3.5-5.1) mmol/L Chloride 116 H 108 H 109 H (98-107) mmol/L Carbon Dioxide 17 L 20 L 23 (22-30) mmol/L BUN 15 19 H 16 (7-17) mg/dL Creatinine 0.81 0.99 1.00 (0.52-1.04) mg/dL Glucose 98 103 H 95 (74-99) mg/dL Calcium 7.4 L 9.7 9.5 (8.4-10.2) mg/dL AST 11 L 19 (14-36) U/L ALT 25 28 (9-52) U/L Alkaline Phosphatase 43 64 (38-126) U/L Total Protein 4.8 L 6.7 (6.3-8.2) g/dL Albumin 2.4 L 3.6 (3.5-5.0) g/dL Thyroid panel 06/28/17 Range/Units 11:51 TSH 2.520 (0.465-4.680) mIU/L Calcium panel 06/28/17 06/28/17 06/29/17 Range/Units 10:41 11:51 03:36 Calcium 7.4 L 9.7 9.5 (8.4-10.2) mg/dL Albumin 2.4 L 3.6 (3.5-5.0) g/dL Pituitary panel 06/28/17 06/28/17 06/28/17 Range/Units 10:41 11:51 11:51 Sodium 142 140 (137-145) mmol/L Potassium 3.3 L 4.4 (3.5-5.1) mmol/L Chloride 116 H 108 H (98-107) mmol/L Carbon Dioxide 17 L 20 L (22-30) mmol/L BUN 15 19 H (7-17) mg/dL Creatinine 0.81 0.99 (0.52-1.04) mg/dL Glucose 98 103 H (74-99) mg/dL Calcium 7.4 L 9.7 (8.4-10.2) mg/dL TSH 2.520 (0.465-4.680) mIU/L 06/29/17 Range/Units 03:36 Sodium 142 (137-145) mmol/L Potassium 4.4 (3.5-5.1) mmol/L Chloride 109 H (98-107) mmol/L Carbon Dioxide 23 (22-30) mmol/L BUN 16 (7-17) mg/dL Creatinine 1.00 (0.52-1.04) mg/dL Glucose 95 (74-99) mg/dL Calcium 9.5 (8.4-10.2) mg/dL TSH (0.465-4.680) mIU/L Adrenal panel 06/28/17 06/28/17 06/29/17 Range/Units 10:41 11:51 03:36 Sodium 142 140 142 (137-145) mmol/L Potassium 3.3 L 4.4 4.4 (3.5-5.1) mmol/L Chloride 116 H 108 H 109 H (98-107) mmol/L Carbon Dioxide 17 L 20 L 23 (22-30) mmol/L BUN 15 19 H 16 (7-17) mg/dL Creatinine 0.81 0.99 1.00 (0.52-1.04) mg/dL Glucose 98 103 H 95 (74-99) mg/dL Calcium 7.4 L 9.7 9.5 (8.4-10.2) mg/dL Total Bilirubin 0.2 0.4 (0.2-1.3) mg/dL AST 11 L 19 (14-36) U/L ALT 25 28 (9-52) U/L Alkaline Phosphatase 43 64 (38-126) U/L Total Protein 4.8 L 6.7 (6.3-8.2) g/dL Albumin 2.4 L 3.6 (3.5-5.0) g/dL - Imaging CT scan - abdomen: report reviewed (Possible cecal mass) Assessment and Plan Assessment: Profound anemia, cecal mass. We'll perform EGD and colonoscopy tomorrow.
[2017-06-29 11:54] LABS: Iron Saturation 2.83 (12.00-45.00)
--- NOTE | 2017-06-29 12:40 | ECHOF ---
Referral Reason:Syncope MEASUREMENTS -------- HEIGHT: 162.6 cm WEIGHT: 61.7 kg BP: 100/60 IVSd: 1.2 cm (0.6 - 1.1) LVIDd: 4.4 cm (3.9 - 5.3) LVPWd: 1.0 cm (0.6 - 1.1) EDV(Teich): 87 ml IVSs: 1.3 cm LVIDs: 2.6 cm LVPWs: 1.5 cm %IVS Thck: 12 % ESV(Teich): 24 ml EF(Teich): 72 % %FS: 41 % SV(Teich): 63 ml LALs A4C: 4.5 cm LAAs A4C: 16.8 cm LAESV A-L A4C: 53 ml LAESV MOD A4C: 51 ml LALs A2C: 5.1 cm LAAs A2C: 19.1 cm LAESV A-L A2C: 60 ml LAESV MOD A2C: 60 ml LAESV(A-L): 60 ml LAESV Index (A-L): 36.26 ml/m Ao Diam: 3.6 cm (2.0 - 3.7) AV Cusp: 2.0 cm (1.5 - 2.6) LA Diam: 4.4 cm (2.7 - 3.8) MV EXCURSION: 16.659 mm (> 18.000) MV EF SLOPE: 40 mm/s (70 - 150) EPSS: 0.2 cm MV E Nnamdi: 0.62 m/s MV DecT: 287 ms MV Dec F[place]: 2.1 m/s MV A Nnamdi: 0.85 m/s MV E/A Ratio: 0.73 MV PHT: 83 ms AV Vmax: 1.36 m/s AV maxP.42 mmHg TR Vmax: 2.09 m/s TR maxP.41 mmHg RAP: 5.00 mmHg RVSP: 22.41 mmHg FINDINGS -------- Sinus rhythm. This was a technically adequate study. The left ventricular size is normal. There is mild concentric left ventricular hypertrophy. Overa ll left ventricular systolic function is low-normal with, an EF between 50 - 55 %. The right ventricle is normal in size. LA is moderately dilated 34-39 ml/m2 The right atrial size is normal. The aortic valve is trileaflet, and appears structurally normal. No aortic stenosis or regurgitation. The mitral valve leaflets are mildly thickened. Mild mitral annular calcification present. Modera te mitral regurgitation is present. There is mild mitral valve prolapse. Mild tricuspid regurgitation present. There is no evidence of pulmonary hypertension. The right v entricular systolic pressure, as measured by Doppler, is 22.41mmHg. Trace/mild (physiologic) pulmonic regurgitation. The aortic root size is normal. There is no pericardial effusion. CONCLUSIONS -------- 1. The left ventricular size is normal. 2. There is mild concentric left ventricular hypertrophy. 3. Overall left ventricular systolic function is low-normal with, an EF between 50 - 55 %. 4. LA is moderately dilated 34-39 ml/m2 5. The aortic valve is trileaflet, and appears structurally normal. No aortic stenosis or regurgitati on. 6. The mitral valve leaflets are mildly thickened. 7. Mild mitral annular calcification present. 8. Moderate mitral regurgitation is present. 9. There is mild mitral valve prolapse. 10. Mild tricuspid regurgitation present. 11. There is no evidence of pulmonary hypertension. 12. The right ventricular systolic pressure, as measured by Doppler, is 22.41mmHg. 13. Trace/mild (physiologic) pulmonic regurgitation. 14. The aortic root size is normal. 15. There is no pericardial effusion. G[place] PACKER: Bri Perez RDCS
--- NOTE | 2017-06-29 16:11 | P.CONS ---
History of Present Illness - Reason for Consult Consult date: 06/29/17 symptomatic anemia Requesting physician: Trung Ellison - Chief Complaint syncopy - History of Present Illness Mrs. Peraza is a very pleasant 77-year old female who does not routinely follow with "[facility]." Patient had a syncopal episode at home which brought her to the hospital. Imaging of the head that was negative, she was found to be severely anemic, hemoglobin of 5.6, she received 2 units of PRBCs with appropriate increase in hemoglobin. Patient denies any visible bleeding, no nosebleeds, hematemesis, hematuria, black or bloody stool, hemorrhoids or easy bruising. Patient states that she typically maintains a weight around 175 pounds, in about 4-6 months she is down to 136 pounds, her clothes are noticeably loose, she denied noticing significant appetite changes, indigestion , heartburn, nausea, abd pain, bloating or cramping. Patient has noted " slowing down" over the last few months, denied unrealistic fatigue, pain or any acute changes otherwise in her health. She is still very active. Review of Systems 14 point ROS as stated in HPI Past Medical History Past Medical History: No Reported History Additional Past Medical History / Comment(s): OCC HEARTBURN TAKES OTC TUMS. FREQUENT NITE TIME URINATION History of Any Multi-Drug Resistant Organisms: None Reported Past Surgical History: Appendectomy Additional Past Surgical History / Comment(s): CATARACTS- LENS IMPLANTS Past Anesthesia/Blood Transfusion Reactions: No Reported Reaction Additional Past Anesthesia/Blood Transfusion Reaction / Comm: "I DON'T LIKE HEIGHTS" Past Psychological History: No Psychological Hx Reported Smoking Status: Never smoker Past Alcohol Use History: None Reported Past Drug Use History: None Reported - Past Family History Father Family Medical History: Myocardial Infarction ([place]) Mother History Unknown: Yes Medications and Allergies Home Medications Medication Instructions Recorded Confirmed Type Ibuprofen [Advil] 200 mg PO Q8HR PRN 06/28/17 06/28/17 History Allergies Allergy/AdvReac Type Severity Reaction Status Date / Time No Known Allergies Allergy Verified 06/28/17 11:38 Physical Exam Vitals: Vital Signs Temp Pulse Pulse Resp BP BP Pulse Ox 06/29/17 15:16 98.3 F 82 16 156/70 97 06/29/17 12:00 98.8 F 88 16 140/63 99 06/29/17 08:00 98.8 F 78 18 138/68 97 06/29/17 04:00 97.6 F 86 18 145/67 98 06/29/17 00:00 99.2 F 79 18 127/60 98 06/28/17 21:37 100.0 F H 80 18 143/66 06/28/17 20:00 98.4 F 81 18 126/59 100 06/28/17 19:22 98.4 F 81 18 126/59 06/28/17 18:52 99 F 82 16 130/53 100 06/28/17 18:42 97.6 F 82 16 130/48 95 06/28/17 18:00 82 16 06/28/17 17:42 98.6 F 88 18 148/72 96 06/28/17 17:29 98.6 F 88 18 148/72 99 06/28/17 16:10 98.3 F 69 16 161/70 97 06/28/17 15:40 98.6 F 82 20 167/72 100 06/28/17 15:30 98 F 81 18 163/75 100 06/28/17 15:24 98 F 78 18 161/77 98 Intake and Output 06/29/17 06/29/17 06/29/17 06:59 14:59 22:59 Intake Total 310 110 Balance 310 110 Intake: IV 310 10 PRBC 310 saline flush 10 Oral 100 Other: Voiding Method Toilet Toilet # Voids 1 Weight 61.7 kg - Constitutional General appearance: cooperative, no acute distress, thin - EENT Eyes: anicteric sclerae, EOMI, poor dentition, normal appearance ENT: hearing grossly normal, normal oropharynx - Neck Neck: no lymphadenopathy - Respiratory Respiratory: bilateral: CTA - Cardiovascular Rhythm: regular Heart sounds: normal: S1, S2 Abnormal Heart Sounds: no systolic murmur, no diastolic murmur, no rub, no S3 Gallop, no S4 Gallop, no click, no other leg Peripheral Edema: bilateral: None - Gastrointestinal General gastrointestinal: no absent bowel sounds, no decreased bowel sounds, no distended, no hepatomegaly, no hyperactive bowel sounds, normal bowel sounds, no organomegaly, no rigid, no scaphoid, soft, no splenomegaly, no tenderness, no umbilical hernia, no ventral hernia - Integumentary Integumentary: pale - Neurologic Neurologic: CNII-XII intact - Musculoskeletal Musculoskeletal: strength equal bilaterally - Psychiatric Psychiatric: A&O x's 3, appropriate affect, intact judgment & insight Results CBC & Chem 7: 06/29/17 06:07 06/29/17 03:36 Labs: Abnormal Lab Results - Last 24 Hours (Table) 06/28/17 06/29/17 06/29/17 Range/Units 13:11 03:36 03:36 Hgb 7.5 L D (11.4-16.0) gm/dL Hct 27.2 L (34.0-46.0) % MCV 67.0 L (80.0-100.0) fL MCH 18.4 L (25.0-35.0) pg MCHC 27.5 L (31.0-37.0) g/dL RDW 21.3 H (11.5-15.5) % Plt Count 496 H (150-450) k/uL Chloride 109 H (98-107) mmol/L Crossmatch See Detail 06/29/17 Range/Units 06:07 Hgb 7.4 L (11.4-16.0) gm/dL Hct 26.3 L (34.0-46.0) % MCV 67.2 L (80.0-100.0) fL MCH 18.9 L (25.0-35.0) pg MCHC 28.1 L (31.0-37.0) g/dL RDW 21.3 H (11.5-15.5) % Plt Count 510 H (150-450) k/uL Chloride (98-107) mmol/L Crossmatch CT scan - abdomen: report reviewed CT Scan - head: report reviewed CT scan - pelvis: report reviewed Assessment and Plan (1) Microcytic hypochromic anemia Narrative/Plan: Pt states being anemic since she was a child but never had a blood transfusion before this admission. Anemia work up ordered, transfuse for symptomatic anemia or Hgb < 7. SCDs for DVT prophylaxis for now Current Visit: Yes Status: Acute Priority: High Code(s): D50.9 - IRON DEFICIENCY ANEMIA, UNSPECIFIED SNOMED Code(s): 15995488 (2) Cecum mass Narrative/Plan: Scan results and pt presentation highly suspicious for malignancy. This was discussed wtih pt and family at bedside, they understand the need for procedures and the need for biopsy results to determine what the plan of care will be. All their questions were answered to the best of my ability. Pt is scheduled for colonoscopy and EGD, CEA was ordered, await biopsy results for follow up. Current Visit: Yes Status: Acute Priority: High Code(s): K63.9 - DISEASE OF INTESTINE, UNSPECIFIED SNOMED Code(s): 846578985
[2017-06-30 05:26] LABS: Reticulocyte % 2.5 % (0.5-2.0)
[2017-06-30] MEDS ORDERED: PROPOFOL 10 MG/ML 20 ML VIAL IV ONE (07:30)
[2017-06-30] MEDS ORDERED: IV FLUID CONTINUATION 1,000 ML IV ONE (07:30)
--- NOTE | 2017-06-30 08:20 | P.OP ---
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 She received IV sedation. The gastricoropharynx and passed into the esophagus and stomach. Scope was then placed through the pylorus. The first and second portion of duodenum was examined. There was a benign appearing duodenal polyp. This was biopsied and removed with a forcep. Scope was then brought back the antrum and then using a forcep and a biopsies performed. The remainder some appeared normal. The scope was then retroflexed and there was a hiatal hernia visualized. The GE junction was at 47 is. The distal esophagus appeared mildly inflamed a biopsies performed. The proximal esophagus appeared normal. Scope was withdrawn for patient. Next digital rectal exam was performed which revealed minimal internal hemorrhoids. The flexible colonoscope was then placed patient anus and passed throughout the entire colon. 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 The colonoscope could not be advanced beyond the tumor. A biopsy of the tumor was performed. The tumor had some evidence of necrosis. Scope was withdrawn remainder the ascending colon transverse colon appeared normal. In the descending and sigmoid colon there is some mild diverticular changes. Scope was then brought back the rectum and a polyp was removed with snare. The scope was then withdrawn for patient.
--- NOTE | 2017-06-30 08:26 | P.PN ---
Progress Note - Text Progress Note Date: 06/30/17 The patient underwent upper and lower endoscopies morning. She was found to have a large right colon tumor. The colon is nearly obstructed. There is evidence of some tumor necrosis. I discussed these findings with the patient's son. The plan is to have the patient undergo exploratory laparotomy and right colectomy in the a.m. I discussed with the patient's son the risks of surgery including wound infection possible colostomy and small bowel resection.
[2017-06-30 08:51] LABS: ALT 23 U/L (9-52); AST 20 U/L (14-36); Albumin 3.3 g/dL (3.5-5.0); Alkaline Phosphatase 56 U/L (38-126); Anion Gap 9 mmol/L; Blood Urea Nitrogen 16 mg/dL (7-17); Carbon Dioxide 27 mmol/L (22-30); Chloride 104 mmol/L (98-107); Glucose 95 mg/dL (74-99); Sodium 140 mmol/L (137-145); Total Bilirubin 0.6 mg/dL (0.2-1.3)
[2017-06-30] MEDS: LACTATED RINGERS 1,000 ML IV SCH ×2 (08:56→19:44)
[2017-06-30 09:00] LABS: Anisocytosis Slight; Basophils % (A) 0 %; Eosinophils # (A) 0.1 k/uL (0-0.7); Eosinophils % (A) 2 %; HCT 27.7 % (34.0-46.0); HGB 7.5 gm/dL (11.4-16.0); Hypochromasia Marked; Lymphocytes # (A) 1.4 k/uL (1.0-4.8); Lymphocytes % (A) 21 %; MCH 18.7 pg (25.0-35.0); MCHC 27.1 g/dL (31.0-37.0); MCV 69.1 fL (80.0-100.0); Mean Platelet Volume 6.1; Microcytosis Marked; Monocytes # (A) 0.4 k/uL (0-1.0); Monocytes % (A) 6 %; Neutrophils # (A) 4.7 k/uL (1.3-7.7); Neutrophils % (A) 69 %; Platelet Count 563 k/uL (150-450); Poikilocytosis Marked; RBC 4.01 m/uL (3.80-5.40); RDW 19.9 % (11.5-15.5); WBC 6.9 k/uL (3.8-10.6)
[2017-06-30 09:12] LABS: Ovalocytes Present; Polychromasia Present
[2017-06-30] MEDS ORDERED: SODIUM FERRIC GLUCONAT-SUCROSE 125 MG in SODIUM CHLORIDE 0.9% 100 ML IVPB ONE (09:30)
[2017-06-30] MEDS ORDERED: HYDROcodone/APAP 5-325MG 1 EACH TAB PO PRN (09:51)
[2017-06-30] MEDS: PANTOPRAZOLE 40 MG TABLET PO SCH (10:06)
--- NOTE | 2017-06-30 10:15 | P.PN ---
Subjective Progress Note Date: 06/30/17 Patient complain of abdominal pain crampsafter returning from her EGD colonoscopy, she denies any nausea or vomiting, she denies abdominal pain or constipation. Discussed her imaging results and ongoing plan of care, she voiced understanding and I also discussed this with her son Marvel (DPOA) Objective - Vital Signs Vital signs: Vital Signs Temp 97.4 F L 06/30/17 04:00 Pulse 70 06/30/17 08:00 Resp 16 06/30/17 08:00 BP 139/55 06/30/17 08:00 Pulse Ox 97 06/30/17 04:00 Intake & Output 06/29/17 06/30/17 06/30/17 18:59 06:59 18:59 Intake Total 590 600 Output Total 5 Balance 590 -5 600 Weight 61.6 kg Intake: IV 10 600 saline flush 10 Oral 580 Output: Urine/Stool Mix 5 Other: Voiding Method Toilet Toilet Toilet # Voids 1 # Bowel Movements 10 - Exam Constitutional: No acute distress, conversant, pleasant Eyes: Anicteric sclerae, moist conjunctiva, no lid-lag, PERRLA ENMT: NC/AT,Oropharynx clear, no erythema, exudates Neck:Supple, FROM, no masses, or JVD, No carotid bruits; No thyromegaly Lungs: Clear to auscultation, Clear to percussion, Normal respiratory effort, no accessory muscle use Cardiovascular: Heart regular in rate and rhythm, No murmurs, gallops, or rubs no peripheral edema Abdominal: Soft Nontender, nom distended, no guarding, no rebound or rigidity, Normoactive bowel sounds No hepatomegaly, No splenomegaly, No palpable mass No abdominal wall hernia noted Skin: Normal temperature, tone, texture, turgor, No induration No subcutaneous nodules, No rash, lesions, No ulcers Extremities:No digital cyanosis No clubbing, Pedal pulses intact and symmetrical Radial pulses intact and symmetrical Normal gait and station, No calf tenderness Psychiatric: Alert and oriented to person, place and time, Appropriate affect Intact judgement Neuro: Muscles Strength 5/5 in all 4 extremities, Sensation to light touch grossly present throughout, Cranial nerves II-XII grossly intact. No focal sensory deficits - EENT Ears: right: erythema - Labs CBC & Chem 7: 06/30/17 05:15 06/30/17 05:15 Labs: Abnormal Lab Results - Last 24 Hours (Table) 06/28/17 06/30/17 06/30/17 Range/Units 11:51 05:15 05:15 Hgb 7.5 L (11.4-16.0) gm/dL Hct 27.7 L (34.0-46.0) % MCV 69.1 L (80.0-100.0) fL MCH 18.7 L (25.0-35.0) pg MCHC 27.1 L (31.0-37.0) g/dL RDW 19.9 H (11.5-15.5) % Plt Count 563 H (150-450) k/uL Retic Count 2.5 H (0.5-2.0) % Iron 8 L (50-170) ug/dL Iron Saturation 2.83 L (12.00-45.00) Ferritin 2.4 L (10.0-291.0) ng/mL Total Protein (6.3-8.2) g/dL Albumin (3.5-5.0) g/dL 06/30/17 Range/Units 05:15 Hgb (11.4-16.0) gm/dL Hct (34.0-46.0) % MCV (80.0-100.0) fL MCH (25.0-35.0) pg MCHC (31.0-37.0) g/dL RDW (11.5-15.5) % Plt Count (150-450) k/uL Retic Count (0.5-2.0) % Iron (50-170) ug/dL Iron Saturation (12.00-45.00) Ferritin (10.0-291.0) ng/mL Total Protein 6.0 L (6.3-8.2) g/dL Albumin 3.3 L (3.5-5.0) g/dL Assessment and Plan (1) Iron deficiency anemia Narrative/Plan: * Hemoglobin with appropriate response up to 7.5 after 2 units packed RBC transfusion * Iron deficiency anemia will start with replacing iron with Ferrlecit 125 mg today and start with oral iron replacement tomorrow * iron deficiency anemia likely secondary to underlying GI malignancy CT evidence of cecal and terminal ileal mass Current Visit: Yes Status: Acute Code(s): D50.9 - IRON DEFICIENCY ANEMIA, UNSPECIFIED SNOMED Code(s): 16873810 (2) Syncope Narrative/Plan: * Secondary to severe symptomatic microcytic anemia * 2-D echo showing normal ejection fraction, CT of the head showing no acute intracranial pathology only 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 Lee * noted large right colon tumor with colon Nearly obstructed * Planning exploratory laparotomy with right colectomy in the a.m. Current Visit: Yes Status: Acute Priority: High Code(s): K63.9 - DISEASE OF INTESTINE, UNSPECIFIED SNOMED Code(s): 176483705 (4) GERD with esophagitis Narrative/Plan: * initiate PPI therapy with Protonix 40 mg by mouth daily Current Visit: Yes Status: Acute Code(s): K21.0 - GASTRO-ESOPHAGEAL REFLUX DISEASE WITH ESOPHAGITIS SNOMED Code(s): 234461776 (5) Unintentional weight loss Narrative/Plan: * Concern for underlying malignancy GI Current Visit: Yes Status: Acute Code(s): R63.4 - ABNORMAL WEIGHT LOSS SNOMED Code(s): 779296369
[2017-06-30 12:40] LABS: Iron Saturation 3.27 (12.00-45.00)
[2017-07-01] MEDS: LACTATED RINGERS 1,000 ML IV SCH (05:58)
[2017-07-01] MEDS: PANTOPRAZOLE 40 MG TABLET PO SCH (06:14)
[2017-07-01] MEDS: FERROUS SULFATE 325 MG TAB PO SCH ×2 (06:14→18:46)
[2017-07-01] MEDS ORDERED: LACTATED RINGERS 1,000 ML IV ONE ×2 (07:48→10:44)
[2017-07-01] MEDS ORDERED: SUCCINYLCHOLINE CHLORIDE 100 MG/5 ML SYR IV ONE (07:48)
[2017-07-01] MEDS ORDERED: ePHEDrine SULFATE/0.9% NACL/PF 50 MG/5 ML SYRINGE IV ONE (07:48)
[2017-07-01] MEDS ORDERED: ONDANSETRON 4 MG/2 ML VIAL ONE (07:48)
[2017-07-01] MEDS ORDERED: fentaNYL (PF) 50 MCG/ML 2 ML AMP ONE (07:48)
[2017-07-01] MEDS ORDERED: GLYCOPYRROLATE 0.2 MG/ML 2 ML VIAL ONE (07:48)
[2017-07-01] MEDS ORDERED: LIDOCAINE 1% INJ 10MG/ML (20 ML MDV) ONE (07:48)
[2017-07-01] MEDS ORDERED: ROCURONIUM BROMIDE 10 MG/ML 10 ML VIAL IV ONE (07:48)
[2017-07-01] MEDS ORDERED: HYDROmorphone (PF) 1 MG/ML ONE (07:48)
[2017-07-01] MEDS ORDERED: DEXAMETHASONE SOD PHOS (MDV) 100 MG/10 ML VIAL ONE (07:48)
[2017-07-01] MEDS ORDERED: MIDAZOLAM 2 MG/2 ML VIAL ONE (07:48)
[2017-07-01] MEDS ORDERED: NEOSTIGMINE 1 MG/ML 10 ML VIAL ONE (07:48)
[2017-07-01] MEDS ORDERED: PROPOFOL 10 MG/ML 20 ML VIAL IV ONE (07:48)
[2017-07-01] MEDS ORDERED: SODIUM CHLORIDE 0.9% 50 ML with ceFAZolin 2,000 MG IV ONE ×2 (08:05)
[2017-07-01] MEDS ORDERED: diphenhydrAMINE 50 MG/ML 1 ML VIAL IVP PRN (08:13)
[2017-07-01] MEDS ORDERED: ONDANSETRON 4 MG/2 ML VIAL IVP PRN ×2 (08:13→09:16)
[2017-07-01] MEDS ORDERED: NALOXONE 0.4 MG/ML 1 ML VIAL IV PRN (08:13)
[2017-07-01] MEDS ORDERED: METOCLOPRAMIDE 5 MG/ML 2 ML VIAL IVP PRN (09:16)
[2017-07-01] MEDS ORDERED: HYDROmorphone 2 MG/ML 1 ML SYRINGE IVP PRN (09:16)
[2017-07-01] MEDS ORDERED: BENZOCAINE/MENTHOL LOZENG 1 EACH LOZENGE MUCOUS MEM PRN (09:16)
--- NOTE | 2017-07-01 09:16 | P.OP ---
Date of Procedure: 07/01/17 Preoperative Diagnosis: Right colon tumor Postoperative Diagnosis: Right colon mass suspicious for adenocarcinoma Liver cysts Procedure(s) Performed: Right colectomy Liver biopsy Anesthesia: JOSEFINA Surgeon: Dylon Lee Estimated Blood Loss (ml): 25 Pathology: other (Right colon, liver biopsy) Condition: stable Disposition: PACU Description of Procedure: The patient's placed on the operating table in supine position. She received general anesthesia. Her abdomen was prepped and draped in usual sterile fashion. The abdomen was entered through a midline incision. The Bookwalter retractors placed on the wound. And the abdomen was explored. The patient appeared to have some cystic liver lesions. The stomach appeared normal the small bowel appeared normal just distal to the ileocecal valve there was a large mass in the colon. There is no significant lymphadenopathy noted. The remainder of the ascending, transverse, descending and sigmoid colon appeared normal. At this point the terminal ileum was transected with a HARDY stapler. And then the right colon was mobilized by dividing the white line of Toldt's. The hepatic flexure was taken down using left cautery. And then the proximal transverse colon was transected with a GI stapler. Using the LigaSure device the mesentery of the colon was divided. The right colic vessel was ligated with 0 silk ties. The specimen was sent to pathology. A [id number] functional end-to-end stapled anastomosis was created using the HARDY and TA stapler. The window in the mesentery was secured with 3-0 GI silk suture. A 3- 0 GI silk suture was also placed as a crotch stitch. The abdomen was irrigated. There is no bleeding seen. At this point the liver was palpated and the palpable densities were visualized. There appeared to be cystic in nature. Just above the gallbladder there was a 2 cm cystic lesion. A portion of the cyst was excised using an 11 blade. The Bovie hemostasis. Specimen sent to pathology. There is no bleeding seen. The abdominal wall was closed with clean instruments. Using a 0 PDS loop suture the fascia was closed and the skin was closed felicia. Silver dressing was applied. The patient was sent to recovery room in stable condition.
[2017-07-01] MEDS: BUPIVACAINE (PF) 0.5% 31.3 ML, HYDROMORPHONE (PF) 5 MG in SODIUM CHLORIDE 0.9% 218 ML EPIDURAL PRN (09:54)
[2017-07-01] MEDS: D5-0.45% NACL WITH KCL 20MEQ/L 1,000 ML IV SCH ×2 (11:30→18:47)
[2017-07-01 12:20] LABS: Anisocytosis Moderate; Basophils % (A) 0 %; Eosinophils % (A) 0 %; HCT 29.5 % (34.0-46.0); HGB 7.6 gm/dL (11.4-16.0); Hypochromasia Marked; Lymphocytes # (A) 0.4 k/uL (1.0-4.8); Lymphocytes % (A) 3 %; MCH 17.7 pg (25.0-35.0); MCHC 25.8 g/dL (31.0-37.0); MCV 68.4 fL (80.0-100.0); Mean Platelet Volume 6.9; Microcytosis Marked; Monocytes # (A) 0.2 k/uL (0-1.0); Monocytes % (A) 2 %; Neutrophils # (A) 11.3 k/uL (1.3-7.7); Neutrophils % (A) 95 %; Platelet Count 488 k/uL (150-450); Poikilocytosis Moderate; RBC 4.31 m/uL (3.80-5.40); RDW 21.5 % (11.5-15.5); WBC 11.9 k/uL (3.8-10.6)
[2017-07-01 12:28] LABS: Anion Gap 7 mmol/L; Blood Urea Nitrogen 10 mg/dL (7-17); Calcium 9.4 mg/dL (8.4-10.2); Carbon Dioxide 26 mmol/L (22-30); Chloride 106 mmol/L (98-107); Glucose 153 mg/dL (74-99); Potassium 3.8 mmol/L (3.5-5.1); Sodium 139 mmol/L (137-145)
--- NOTE | 2017-07-01 13:08 | P.PN ---
Subjective Progress Note Date: 07/01/17 Patient complain of abdominal pain soreness after her surgery, she denies any nausea or vomiting, Discussed her imaging results and ongoing plan of care,, no acute events overnight Objective - Vital Signs Vital signs: Vital Signs Temp 96.9 F L 07/01/17 09:14 Pulse 75 07/01/17 10:45 Resp 16 07/01/17 10:45 BP 132/64 07/01/17 10:45 Pulse Ox 97 07/01/17 10:45 Intake & Output 06/30/17 07/01/17 07/01/17 18:59 06:59 18:59 Intake Total 5285 128 0349 Output Total 200 230 Balance 388 325 4021 Weight 61.9 kg Intake: IV 212 389 8181 Lactated Ringers 1,000 ml 800 @ 100 mls/hr IV .Q10H MARILYN Rx#:[id number] Oral 480 Output: Urine 200 205 Estimated Blood Loss 25 Other: Voiding Method Toilet Toilet # Voids 1 1 # Bowel Movements 0 - Exam Constitutional: No acute distress, conversant, pleasant Eyes: Anicteric sclerae, moist conjunctiva, no lid-lag, PERRLA ENMT: NC/AT,Oropharynx clear, no erythema, exudates Neck:Supple, FROM, no masses, or JVD, No carotid bruits; No thyromegaly Lungs: Clear to auscultation, Clear to percussion, Normal respiratory effort, no accessory muscle use Cardiovascular: Heart regular in rate and rhythm, No murmurs, gallops, or rubs no peripheral edema Abdominal: Soft tender to palpation midline dressing mildly blood tinged, nom distended, no guarding, no rebound or rigidity, hypoactive bowel sounds No hepatomegaly, No splenomegaly, Skin: Normal temperature, tone, texture, turgor, No induration No subcutaneous nodules, No rash, lesions, No ulcers Extremities:No digital cyanosis No clubbing, Pedal pulses intact and symmetrical Radial pulses intact and symmetrical Normal gait and station, No calf tenderness Psychiatric: Alert and oriented to person, place and time, Appropriate affect Intact judgement Neuro: Muscles Strength 5/5 in all 4 extremities, Sensation to light touch grossly present throughout, Cranial nerves II-XII grossly intact. No focal sensory deficits - Labs CBC & Chem 7: 07/01/17 11:58 07/01/17 11:58 Labs: Abnormal Lab Results - Last 24 Hours (Table) 06/30/17 07/01/17 07/01/17 Range/Units 05:15 11:58 11:58 WBC 11.9 H (3.8-10.6) k/uL Hgb 7.6 L (11.4-16.0) gm/dL Hct 29.5 L (34.0-46.0) % MCV 68.4 L (80.0-100.0) fL MCH 17.7 L (25.0-35.0) pg MCHC 25.8 L (31.0-37.0) g/dL RDW 21.5 H (11.5-15.5) % Plt Count 488 H (150-450) k/uL Neutrophils # 11.3 H (1.3-7.7) k/uL Lymphocytes # 0.4 L (1.0-4.8) k/uL Glucose 153 H (74-99) mg/dL Iron 11 L (50-170) ug/dL Iron Saturation 3.27 L (12.00-45.00) Ferritin 5.4 L (10.0-291.0) ng/mL Assessment and Plan (1) Iron deficiency anemia Narrative/Plan: * Hemoglobin with appropriate response up to 7.5 after 2 units packed RBC transfusion * Continue with oral iron replacement and patient able to tolerate by mouth * iron deficiency anemia likely secondary to underlying GI malignancy CT evidence of cecal and terminal ileal mass Current Visit: Yes Status: Acute Code(s): D50.9 - IRON DEFICIENCY ANEMIA, UNSPECIFIED SNOMED Code(s): 99514922 (2) Syncope Narrative/Plan: * Secondary to severe symptomatic microcytic anemia * 2-D echo showing normal ejection fraction, CT of the head showing no acute intracranial pathology only evidence of old lacunar infarct Current Visit: Yes Status: Acute Code(s): R55 - SYNCOPE AND COLLAPSE SNOMED Code(s): 770790638 (3) Cecum mass Narrative/Plan: * patient had colonoscopy with biopsy of colonic polyp and cecal mass,by general surgery Dr. Lee * on colonoscopy noted large right colon tumor with colon Nearly obstructed tumor suspicious for colonic adenocarcinoma * Status post right colectomy, continue with clear liquid diet Current Visit: Yes Status: Acute Priority: High Code(s): K63.9 - DISEASE OF INTESTINE, UNSPECIFIED SNOMED Code(s): 645880934 (4) GERD with esophagitis Narrative/Plan: * Continue with IV PPI therapy Current Visit: Yes Status: Acute Code(s): K21.0 - GASTRO-ESOPHAGEAL REFLUX DISEASE WITH ESOPHAGITIS SNOMED Code(s): 176387673 (5) Unintentional weight loss Narrative/Plan: * Concern for colonic adenocarcinoma Current Visit: Yes Status: Acute Code(s): R63.4 - ABNORMAL WEIGHT LOSS SNOMED Code(s): 773886807
[2017-07-01] MEDS: HEPARIN SODIUM,PORCINE 5,000 UNIT/ML 1 ML VIAL SQ SCH ×2 (17:16→23:44)
[2017-07-01] MEDS: FAMOTIDINE 20 MG/2 ML VIAL IV SCH (20:38)
[2017-07-01] MEDS: ALVIMOPAN 12 MG CAPSULE PO SCH (20:39)
[2017-07-02] MEDS: D5-0.45% NACL WITH KCL 20MEQ/L 1,000 ML IV SCH ×4 (05:36→22:33)
[2017-07-02] MEDS: PANTOPRAZOLE 40 MG TABLET PO SCH (06:22)
[2017-07-02] MEDS: FERROUS SULFATE 325 MG TAB PO SCH ×2 (06:22→17:10)
--- NOTE | 2017-07-02 06:39 | P.PN ---
Progress Note - Text Progress Note Date: 07/02/17 Postoperative day # status post expected laparotomy, right colectomy, epidural catheter placed for postoperative analgesia, patient doing well epidural site okay, patient currently on combination of epidural infusion solution of bupivacaine 0.0625% and Dilaudid 20 g per mL the infusion rate at 5 ml per hour , patient had no motor deficit epidural site okay , vital signs stable ,VAS 0/10 , Assessment and plan=. post operative day # 1 patient doing well ,pain well controlled , there is no anesthesia related complications
[2017-07-02] MEDS: ALVIMOPAN 12 MG CAPSULE PO SCH ×2 (08:23→20:52)
[2017-07-02] MEDS: FAMOTIDINE 20 MG/2 ML VIAL IV SCH ×2 (08:23→20:53)
[2017-07-02] MEDS: HEPARIN SODIUM,PORCINE 5,000 UNIT/ML 1 ML VIAL SQ SCH ×3 (08:23→22:34)
--- NOTE | 2017-07-02 09:21 | P.PN ---
Subjective Progress Note Date: 07/02/17 Principal diagnosis: Syncope, cecal mass patient is a 77-year-old female with no significant past medical history because she had not seen a doctor in years who presented to the ER via EMS after passing out. The ER she underwent an extensive evaluation.her initial vital signs showed a slight tachycardia. Initial laboratory analysis showed a hemoglobin of 5.6.as well as a slightly elevated bun. She was ordered 2 units of packed red blood cells and arrangements were made for admission for further GI evaluation. CT of the abdomen and pelvis was ordered which showed a cecal mass. Dr. Lee was consulted. Patient underwent EGD and colonoscopy which showed a near obstructing right cecal mass. She underwent a right colectomy on 07/01 without complications. Patient seen and examined at bedside. She is requesting something to eat. She does not want to continue on a clear liquid diet. She has passed flatus but has not had a bowel movement. She has had no nausea. Her pain is well controlled. She has not gotten up and ambulated yet. She would also like her Villeda catheter out. She has no other complaints currently. Will transfer to surgical floor if blood work unremarkable. Objective - Vital Signs Vital signs: Vital Signs Temp 97 F L 07/02/17 08:23 Pulse 84 07/02/17 08:23 Resp 18 07/02/17 08:23 BP 142/62 07/02/17 08:23 Pulse Ox 94 L 07/02/17 08:23 Intake & Output 07/01/17 07/02/17 07/02/17 18:59 06:59 18:59 Intake Total 1300 Output Total 230 1600 Balance 1070 -1600 Intake: IV 1300 Output: Urine 205 1600 Estimated Blood Loss 25 Other: Voiding Method Indwelling Catheter Indwelling Catheter Indwelling Catheter # Voids 0 1 # Bowel Movements 0 - Exam General: non toxic, mild distress due to pain, appears at stated age Derm: warm, dry Head: atraumatic, normocephalic, symmetric Eyes: EOMI, no lid lag, anicteric sclera Mouth: no lip lesion, mucus membranes moist Cardiovascular: S1S2 reg, no murmur, positive posterior tibial pulse bilateral, Lungs: CTA bilateral, no rhonchi, no rales , no accessory muscle use Abdominal: soft, + tender to palpation midline, no guarding, no appreciable organomegaly, dressing covering incision with minimal soak through Ext: no gross muscle atrophy, no edema, no contractures Neuro: CN II-XI grossly intact, no focal neuro deficits Psych: Alert, oriented, appropriate affect - Labs CBC & Chem 7: 07/02/17 09:27 07/02/17 09:27 Labs: Abnormal Lab Results - Last 24 Hours (Table) 06/30/17 07/01/17 07/01/17 Range/Units 05:15 11:58 11:58 WBC 11.9 H (3.8-10.6) k/uL Hgb 7.6 L (11.4-16.0) gm/dL Hct 29.5 L (34.0-46.0) % MCV 68.4 L (80.0-100.0) fL MCH 17.7 L (25.0-35.0) pg MCHC 25.8 L (31.0-37.0) g/dL RDW 21.5 H (11.5-15.5) % Plt Count 488 H (150-450) k/uL Neutrophils # 11.3 H (1.3-7.7) k/uL Lymphocytes # 0.4 L (1.0-4.8) k/uL Glucose 153 H (74-99) mg/dL RBC Folate 941 H (280 - 791) ng/mL Assessment and Plan Assessment: Cecal mass s/p Right colectomy - await path - pain control - Surgery recs - on clear liquid diet - oncology following Symptomatic anemia severe iron deficiency - On IV and oral iron therapy - follow CBC Reactive thrombocytosis - due to low iron levels - anticipate platelets to improve once iron better Relative vitamin B12 deficiency - vitamin B12 replacement per oncology GERD with esophagitis - PPI Moderate protein calorie malnutrition - weight loss, temporal wasting - dietitian recommendations Chronic/Resolved: unintentional weight loss Syncope Duodenal polyps diverticulosis DVT prophylaxis: Heparin sc Discussed with: Patient Anticipated discharge: 3-[address]: home with home health vs snf A total of 40 minutes was spent on the care of this complex patient more than 50 % of the time was spent in counseling and care coordination.
[2017-07-02 09:50] LABS: Anisocytosis Moderate; HCT 26.8 % (34.0-46.0); HGB 7.1 gm/dL (11.4-16.0); Hypochromasia Marked; MCH 19.1 pg (25.0-35.0); MCHC 26.6 g/dL (31.0-37.0); MCV 71.5 fL (80.0-100.0); Mean Platelet Volume 6.5; Microcytosis Marked; Platelet Count 493 k/uL (150-450); Poikilocytosis Moderate; RBC 3.75 m/uL (3.80-5.40); RDW 20.5 % (11.5-15.5); WBC 15.2 k/uL (3.8-10.6)
[2017-07-02 10:03] LABS: ALT 44 U/L (9-52); AST 30 U/L (14-36); Albumin 2.8 g/dL (3.5-5.0); Alkaline Phosphatase 49 U/L (38-126); Anion Gap 10 mmol/L; Blood Urea Nitrogen 8 mg/dL (7-17); Calcium 9.2 mg/dL (8.4-10.2); Carbon Dioxide 25 mmol/L (22-30); Chloride 103 mmol/L (98-107); Glucose 120 mg/dL (74-99); Magnesium 1.8 mg/dL (1.6-2.3); Phosphorus 3.1 mg/dL (2.5-4.5); Potassium 4.3 mmol/L (3.5-5.1); Sodium 138 mmol/L (137-145); Total Bilirubin 0.2 mg/dL (0.2-1.3); Total Protein 5.5 g/dL (6.3-8.2)
[2017-07-02] MEDS: CYANOCOBALAMIN 1,000 MCG/ML 1 ML VIAL IM SCH (10:05)
[2017-07-02] MEDS: SODIUM FERRIC GLUCONAT-SUCROSE 125 MG in SODIUM CHLORIDE 0.9% 100 ML IVPB SCH (10:30)
[2017-07-02 14:40] VITALS: BMI 23.4
[2017-07-03] MEDS: BUPIVACAINE (PF) 0.5% 31.3 ML, HYDROMORPHONE (PF) 5 MG in SODIUM CHLORIDE 0.9% 218 ML EPIDURAL PRN (02:26)
[2017-07-03] MEDS: FAMOTIDINE 20 MG/2 ML VIAL IV SCH ×2 (07:59→22:21)
[2017-07-03] MEDS: CYANOCOBALAMIN 1,000 MCG/ML 1 ML VIAL IM SCH (07:59)
[2017-07-03] MEDS: ALVIMOPAN 12 MG CAPSULE PO SCH ×2 (07:59→22:21)
[2017-07-03] MEDS: HEPARIN SODIUM,PORCINE 5,000 UNIT/ML 1 ML VIAL SQ SCH ×3 (07:59→23:38)
[2017-07-03] MEDS: D5-0.45% NACL WITH KCL 20MEQ/L 1,000 ML IV SCH ×3 (08:00→23:37)
[2017-07-03] MEDS: FERROUS SULFATE 325 MG TAB PO SCH ×2 (08:00→17:32)
[2017-07-03 08:11] LABS: Anisocytosis Moderate; HCT 25.4 % (34.0-46.0); HGB 7.1 gm/dL (11.4-16.0); Hypochromasia Marked; MCH 19.3 pg (25.0-35.0); MCHC 27.9 g/dL (31.0-37.0); Mean Platelet Volume 7.6; Microcytosis Marked; Platelet Count 393 k/uL (150-450); Poikilocytosis Moderate; RBC 3.69 m/uL (3.80-5.40); RDW 23.2 % (11.5-15.5); WBC 8.5 k/uL (3.8-10.6)
[2017-07-03 08:40] LABS: ALT 41 U/L (9-52); AST 21 U/L (14-36); Albumin 2.4 g/dL (3.5-5.0); Alkaline Phosphatase 47 U/L (38-126); Anion Gap 3 mmol/L; Blood Urea Nitrogen 6 mg/dL (7-17); Carbon Dioxide 26 mmol/L (22-30); Chloride 109 mmol/L (98-107); Glucose 98 mg/dL (74-99); Magnesium 1.7 mg/dL (1.6-2.3); Phosphorus 2.5 mg/dL (2.5-4.5); Potassium 4.6 mmol/L (3.5-5.1); Sodium 138 mmol/L (137-145); Total Bilirubin 0.3 mg/dL (0.2-1.3); Total Protein 4.8 g/dL (6.3-8.2)
[2017-07-03] MEDS: SODIUM FERRIC GLUCONAT-SUCROSE 125 MG in SODIUM CHLORIDE 0.9% 100 ML IVPB SCH (08:47)
--- NOTE | 2017-07-03 09:04 | P.PN ---
Progress Note - Text Anesthesia POD 2. Status Post right colectomy under general endotracheal anesthesia with an epidrual catheter placed at L2-3 for post surgical pain releif. VAS (0, 2) with Bupivicaine 0.0625 % and Dilaudid 20 mcg / cc running at 5 cc / hr. Lower extremity strength (4/4). No sedation. Site looks OK.
--- NOTE | 2017-07-03 09:46 | P.PN ---
Subjective Progress Note Date: 07/03/17 Principal diagnosis: Syncope, cecal mass Patient is a 77-year-old female with no significant past medical history because she had not seen a doctor in years who presented to the ER via EMS after passing out. The ER she underwent an extensive evaluation. Her initial vital signs showed a slight tachycardia. Initial laboratory analysis showed a hemoglobin of 5.6 as well as a slightly elevated bun. She was ordered 2 units of packed red blood cells and arrangements were made for admission for further GI evaluation. CT of the abdomen and pelvis was ordered which showed a cecal mass. Dr. Lee was consulted. Patient underwent EGD and colonoscopy which showed a near obstructing right cecal mass. She underwent a right colectomy on 07/01 without complications. Patient seen and examined at bedside. She does have some muscle soreness her left abdomen. She states her pain is well controlled. She denies chest pain, shortness of breath, nausea, or diarrhea. We discussed the fact that her biopsy results are not available yet. Objective - Vital Signs Vital signs: Vital Signs Temp 98.9 F 07/03/17 07:00 Pulse 96 07/03/17 07:00 Resp 18 07/03/17 07:00 BP 160/64 07/03/17 07:00 Pulse Ox 96 07/03/17 07:00 Intake & Output 07/02/17 07/03/17 07/03/17 18:59 06:59 18:59 Intake Total 225 Balance 225 Weight 61.9 kg Intake: Intake, IV Titration 225 Amount Bupivacaine (Pf) 0.5% 31. 225 3 ml Hydromorphone (Pf) 5 mg In Sodium Chloride 0. 9% 218 ml @ Per Protocol EPIDURAL .Q0M PRN Rx#: [id number] Other: Voiding Method Indwelling Catheter Indwelling Catheter Indwelling Catheter # Voids 1 - Exam General: non toxic,no distress, appears at stated age Derm: warm, dry Head: atraumatic, normocephalic, symmetric Eyes: EOMI, no lid lag, anicteric sclera Mouth: no lip lesion, mucus membranes moist Cardiovascular: S1S2 reg, no murmur, positive posterior tibial pulse bilateral, Lungs: CTA bilateral, no rhonchi, no rales , no accessory muscle use Abdominal: soft, + tender to palpation midline, no guarding, no appreciable organomegaly, dressing covering incision with minimal soak through Ext: no gross muscle atrophy, no edema, no contractures Neuro: CN II-XI grossly intact, no focal neuro deficits Psych: Alert, oriented, appropriate affect - Labs CBC & Chem 7: 07/03/17 08:00 07/03/17 07:57 Labs: Abnormal Lab Results - Last 24 Hours (Table) 07/02/17 07/02/17 07/03/17 Range/Units 09:27 09:27 07:57 WBC 15.2 H (3.8-10.6) k/uL RBC 3.75 L (3.80-5.40) m/uL Hgb 7.1 L (11.4-16.0) gm/dL Hct 26.8 L (34.0-46.0) % MCV 71.5 L (80.0-100.0) fL MCH 19.1 L (25.0-35.0) pg MCHC 26.6 L (31.0-37.0) g/dL RDW 20.5 H (11.5-15.5) % Plt Count 493 H (150-450) k/uL Chloride 109 H (98-107) mmol/L BUN 6 L (7-17) mg/dL Glucose 120 H (74-99) mg/dL Total Protein 5.5 L 4.8 L (6.3-8.2) g/dL Albumin 2.8 L 2.4 L (3.5-5.0) g/dL 07/03/17 Range/Units 08:00 WBC (3.8-10.6) k/uL RBC 3.69 L (3.80-5.40) m/uL Hgb 7.1 L (11.4-16.0) gm/dL Hct 25.4 L (34.0-46.0) % MCV 69.0 L (80.0-100.0) fL MCH 19.3 L (25.0-35.0) pg MCHC 27.9 L (31.0-37.0) g/dL RDW 23.2 H (11.5-15.5) % Plt Count (150-450) k/uL Chloride (98-107) mmol/L BUN (7-17) mg/dL Glucose (74-99) mg/dL Total Protein (6.3-8.2) g/dL Albumin (3.5-5.0) g/dL Assessment and Plan Assessment: Cecal mass s/p Right colectomy - await path - pain control - Surgery recs - on clear liquid diet - oncology following Symptomatic anemia severe iron deficiency - On IV and oral iron therapy - follow CBC - patient has struggled with severe constipation in the past on oral iron. Will not start laxative at this time as patient is on reglan and Entereg and not passiing gas today. Relative vitamin B12 deficiency - vitamin B12 replacement per oncology GERD with esophagitis - PPI Moderate protein calorie malnutrition - weight loss, temporal wasting - dietitian recommendations Chronic/Resolved: unintentional weight loss Syncope Duodenal polyps diverticulosis Reactive thrombocytosis, resolved leukocytosis DVT prophylaxis: Heparin sc Discussed with: Patient Anticipated discharge: [address]: home with home health A total of 40 minutes was spent on the care of this complex patient more than 50 % of the time was spent in counseling and care coordination.
--- NOTE | 2017-07-03 15:36 | P.PN ---
Subjective Progress Note Date: 07/03/17 77-year-old female seen and examined. States pain medication effective for pain control. Denies any dizziness lightheadedness. Patient just ambulated in the hallway Patient did undergo on July 01 right colectomy, liver biopsy for a right colon mass suspicious for adenocarcinoma path report pending Objective - Vital Signs Vital signs: Vital Signs Temp 98.1 F 07/03/17 15:00 Pulse 97 07/03/17 15:00 Resp 16 07/03/17 15:00 BP 139/69 07/03/17 15:00 Pulse Ox 97 07/03/17 15:00 Intake & Output 07/02/17 07/03/17 07/03/17 18:59 06:59 18:59 Intake Total 225 Output Total 1600 Balance 225 -1600 Weight 61.9 kg Intake: Intake, IV Titration 225 Amount Bupivacaine (Pf) 0.5% 31. 225 3 ml Hydromorphone (Pf) 5 mg In Sodium Chloride 0. 9% 218 ml @ Per Protocol EPIDURAL .Q0M PRN Rx#: [id number] Output: Urine 1600 Other: Voiding Method Indwelling Catheter Indwelling Catheter Indwelling Catheter # Voids 1 - Exam Physical exam 77-year-old female appearing in no acute distress appearing stated age Lungs adequate air movement bilaterally Heart S1-S2 audible regular Abdomen surgical dressing dry surgical tenderness appropriate denies any nausea vomiting no stool few hypoactive bowel tones extremities no edema - Labs CBC & Chem 7: 07/03/17 08:00 07/03/17 07:57 Labs: Abnormal Lab Results - Last 24 Hours (Table) 07/03/17 07/03/17 Range/Units 07:57 08:00 RBC 3.69 L (3.80-5.40) m/uL Hgb 7.1 L (11.4-16.0) gm/dL Hct 25.4 L (34.0-46.0) % MCV 69.0 L (80.0-100.0) fL MCH 19.3 L (25.0-35.0) pg MCHC 27.9 L (31.0-37.0) g/dL RDW 23.2 H (11.5-15.5) % Chloride 109 H (98-107) mmol/L BUN 6 L (7-17) mg/dL Total Protein 4.8 L (6.3-8.2) g/dL Albumin 2.4 L (3.5-5.0) g/dL Assessment and Plan Assessment: Impression Symptomatic anemia severe iron deficiency Moderate protein calorie malnutrition with muscle wasting Right colon mass suspicious for adrenal carcinoma Status post June right colectomy, liver biopsy for the right colon tumor Plan Follow up on path report Continue postop surgical care Pain control DVT and GI prophylaxis Further recommendations pending will follow The above impression and plan of care have been discussed and directed by signing physician. Claudia Shaikh nurse practitioner acting as scribe for signing physician.
[2017-07-04] MEDS: BUPIVACAINE (PF) 0.5% 31.3 ML, HYDROMORPHONE (PF) 5 MG in SODIUM CHLORIDE 0.9% 218 ML EPIDURAL PRN (02:36)
--- NOTE | 2017-07-04 05:55 | P.PN ---
Progress Note - Text Date: 07/04/2017 Time: 05:45 The patient is status post[, right colectomy,] postoperative day number 3 The patient has no complaints of nausea vomiting or headache. The patient does not complain of any lower extremity numbness or weakness. The epidural is running at 5 mL per hour. VAS 1-10. The epidural will be discontinued this morning. Pain meds will be provided to the patient by the service.
[2017-07-04] MEDS: D5-0.45% NACL WITH KCL 20MEQ/L 1,000 ML IV SCH ×3 (06:52→11:19)
[2017-07-04 07:30] LABS: Anisocytosis Moderate; HCT 25.3 % (34.0-46.0); Hypochromasia Marked; MCHC 26.5 g/dL (31.0-37.0); MCV 71.6 fL (80.0-100.0); Mean Platelet Volume 6.7; Microcytosis Marked; Platelet Count 428 k/uL (150-450); Poikilocytosis Moderate; RBC 3.54 m/uL (3.80-5.40); RDW 22.1 % (11.5-15.5); WBC 7.1 k/uL (3.8-10.6)
[2017-07-04 07:36] LABS: Anion Gap 5 mmol/L; Blood Urea Nitrogen 5 mg/dL (7-17); Calcium 9.1 mg/dL (8.4-10.2); Carbon Dioxide 25 mmol/L (22-30); Chloride 109 mmol/L (98-107); Glucose 99 mg/dL (74-99); Magnesium 1.7 mg/dL (1.6-2.3); Phosphorus 2.1 mg/dL (2.5-4.5); Potassium 4.4 mmol/L (3.5-5.1); Sodium 139 mmol/L (137-145)
[2017-07-04 07:38] LABS: HGB 6.7 gm/dL (11.4-16.0)
[2017-07-04] MEDS: FAMOTIDINE 20 MG/2 ML VIAL IV SCH ×2 (07:56→21:42)
[2017-07-04] MEDS: HEPARIN SODIUM,PORCINE 5,000 UNIT/ML 1 ML VIAL SQ SCH ×3 (07:56→23:18)
[2017-07-04] MEDS: CYANOCOBALAMIN 1,000 MCG/ML 1 ML VIAL IM SCH (07:56)
[2017-07-04] MEDS: FERROUS SULFATE 325 MG TAB PO SCH ×2 (07:56→16:45)
[2017-07-04] MEDS: ALVIMOPAN 12 MG CAPSULE PO SCH ×2 (07:56→21:42)
--- NOTE | 2017-07-04 09:54 | P.PN ---
Subjective Progress Note Date: 07/04/17 77-year-old female seen and examined this morning. Patient is sitting up taking a full liquid diet. Reports no nausea vomiting. Patient reports "woke up in the middle of the night had a large incontinent stool. Indwelling Villeda catheter in place. Plan is for the epidural to be discontinued this morning per recommendations of anesthesia Objective - Vital Signs Vital signs: Vital Signs Temp 98.2 F 07/04/17 07:00 Pulse 86 07/04/17 07:00 Resp 16 07/04/17 07:00 BP 170/70 07/04/17 07:00 Pulse Ox 95 07/04/17 07:00 Intake & Output 07/03/17 07/04/17 07/04/17 18:59 06:59 18:59 Intake Total 240 137.916 Output Total 1600 3400 Balance -1360 -3262.084 Weight 61.9 kg Intake: Intake, IV Titration 137.916 Amount Bupivacaine (Pf) 0.5% 31. 137.916 3 ml Hydromorphone (Pf) 5 mg In Sodium Chloride 0. 9% 218 ml @ Per Protocol EPIDURAL .Q0M PRN Rx#: [id number] Oral 240 Output: Urine 1600 3400 Other: Voiding Method Indwelling Catheter Indwelling Catheter Indwelling Catheter # Voids 1 # Bowel Movements 1 - Exam Physical exam 77-year-old female appearing in no acute distress patient states that she did walk in the hallway 4 times yesterday Lungs adequate air movement bilaterally on room air Heart S1-S2 audible regular denying chest pain Abdomen surgical dressing dry surgical tenderness appropriate denies any nausea vomiting no stool few hypoactive bowel tones indwelling Villeda catheter in place bowel tones present had a bowel movement during the night extremities no edema - Labs CBC & Chem 7: 07/04/17 07:09 07/04/17 07:09 Labs: Abnormal Lab Results - Last 24 Hours (Table) 07/04/17 07/04/17 Range/Units 07:09 07:09 RBC 3.54 L (3.80-5.40) m/uL Hgb 6.7 L* (11.4-16.0) gm/dL Hct 25.3 L (34.0-46.0) % MCV 71.6 L (80.0-100.0) fL MCH 19.0 L (25.0-35.0) pg MCHC 26.5 L (31.0-37.0) g/dL RDW 22.1 H (11.5-15.5) % Chloride 109 H (98-107) mmol/L BUN 5 L (7-17) mg/dL Phosphorus 2.1 L (2.5-4.5) mg/dL Assessment and Plan Assessment: Impression Symptomatic anemia severe iron deficiency Moderate protein calorie malnutrition with muscle wasting Right colon mass suspicious for adrenal carcinoma Status post June right colectomy, liver biopsy for the right colon tumor Plan Repeat labs in the morning Remove the indwelling Villeda catheter 4 hours after epidural removed Increase activity Follow up on path report Continue postop surgical care Pain control DVT and GI prophylaxis Further recommendations pending will follow The above impression and plan of care have been discussed and directed by signing physician. Claudia Shaikh nurse practitioner acting as scribe for signing physician.
--- NOTE | 2017-07-04 10:27 | P.PN ---
Subjective Progress Note Date: 07/04/17 Principal diagnosis: patient is seen and examined in follow up for severe symptomatic anemia, elevated blood pressure, and post operative care 77 year old female with poor outpatient follow up, presented due to passing out , and was found to have severe anemia and right obstructive cecal mass. Patient is seen and examined today, she is doing well denies any nausea vomiting or fevers. She reports passing bowel movements overnight more like stool incontinence however she could not comment of there were any bloody bowel movements or melena. Currently she feels great she still has the Villeda catheter in place and the epidural pain control. She is tolerating liquid diet. Otherwise denies any chest pain or trouble breathing at this point, denies any headaches slurred speech or any focal neurologic deficits Objective - Vital Signs Vital signs: Vital Signs Temp 98.2 F 07/04/17 07:00 Pulse 86 07/04/17 07:00 Resp 16 07/04/17 07:00 BP 170/70 07/04/17 07:00 Pulse Ox 95 07/04/17 07:00 Intake & Output 07/03/17 07/04/17 07/04/17 18:59 06:59 18:59 Intake Total 240 137.916 Output Total 1600 3400 Balance -1360 -3262.084 Weight 61.9 kg Intake: Intake, IV Titration 137.916 Amount Bupivacaine (Pf) 0.5% 31. 137.916 3 ml Hydromorphone (Pf) 5 mg In Sodium Chloride 0. 9% 218 ml @ Per Protocol EPIDURAL .Q0M PRN Rx#: [id number] Oral 240 Output: Urine 1600 3400 Other: Voiding Method Indwelling Catheter Indwelling Catheter Indwelling Catheter # Voids 1 # Bowel Movements 1 - Exam Constitutional: vital signs stable, Not in acute distress, pleasant, conversant Lungs: Clear to auscultation bilaterally, clear to percussion, normal respiratory effort no use of accessory muscles Cardiovascular: Regular rate and rhythm, no murmurs, no gallops, no rubs, no peripheral edema Gastrointestinal: Soft, minimal discomfort upon palpation around surgical site which is appropriate for postop, surgical dressing is intact looks dry there is some evidence of small spots of dry blood. No erythema over the exposed portions of the skin. Bowel sounds are sluggish, no distention Extremities: No digital cyanosis or clubbing, peripheral pulses palpable and equal over bilateral radial arteries and dorsalis pedis artery, no calf muscle tenderness Psych: Alert, oriented to place, person and time Patient still has Villeda catheter in place, an epidural catheter in place - Labs CBC & Chem 7: 07/04/17 07:09 07/04/17 07:09 Labs: Abnormal Lab Results - Last 24 Hours (Table) 07/04/17 07/04/17 Range/Units 07:09 07:09 RBC 3.54 L (3.80-5.40) m/uL Hgb 6.7 L* (11.4-16.0) gm/dL Hct 25.3 L (34.0-46.0) % MCV 71.6 L (80.0-100.0) fL MCH 19.0 L (25.0-35.0) pg MCHC 26.5 L (31.0-37.0) g/dL RDW 22.1 H (11.5-15.5) % Chloride 109 H (98-107) mmol/L BUN 5 L (7-17) mg/dL Phosphorus 2.1 L (2.5-4.5) mg/dL Assessment and Plan Assessment: 77-year-old female with poor outpatient follow-up, presented after passing out she was found to have severe anemia and upon further workup near obstructive right cecal mass was discovered patient has underwent right colectomy on July 01, still awaiting pathology results. Plan: #Right near obstructive cecal mass status post right colectomy postoperative day #3 Patient tolerating liquid diet Pain is well controlled, per anesthesia recommendations epidural catheter to be discontinued today Patient had stool incontinence overnight however could not comment whether it was bloody or any melanotic stools Denies any nausea or vomiting Continue with supportive care Gen. surgery following Still await pathology results, high suspicion for cancer #Severe symptomatic iron deficiency anemia This is most likely secondary to above Patient is status post 2 units blood transfusion Today hemoglobin drops below 7 again, plan for transfusing 2 more units of blood Patient is not aware of any ongoing GI bleeding at this point Continue to monitor Continue with iron replacement therapy. #Hypophosphatemia Replace orally with future [place] 3 times a day for 3 days Check phosphorus level daily Avoid refeeding syndrome #Elevated systolic blood pressure without diagnosis of hypertension This is most likely newly diagnosed hypertension as patient has been having high systolic blood pressure readings in the range of 160s to 170s Patient is currently asymptomatic Start low-dose Norvasc Continue to monitor #Moderate protein calorie malnutrition Most likely second to underlying possible cancer Supportive care and encourage increased by mouth intake as tolerated We'll add supplements once by mouth intake is back to baseline DVT prophylaxis on heparin subcu Anticipated discharge to be tomorrow PT to assist the patient with ambulation for full assessment Epidural catheter to be discontinued today, Villeda catheter to be discontinued at a later time Check postvoid residual with bladder scan Possible discharge within 24-48 hours Check hemoglobin level in the morning Follow up phosphorus level in the morning
[2017-07-04] MEDS: POTAS-SOD-PHOS 278-164-250 MG 1 EACH PACKET PO SCH ×3 (11:13→21:42)
[2017-07-04] MEDS: amLODIPine 5 MG TAB PO SCH (13:59)
[2017-07-04] MEDS ORDERED: cloNIDine HCL 0.1 MG TAB PO STA (16:24)
[2017-07-05] MEDS: FERROUS SULFATE 325 MG TAB PO SCH ×2 (07:36→17:13)
[2017-07-05] MEDS: POTAS-SOD-PHOS 278-164-250 MG 1 EACH PACKET PO SCH ×3 (07:37→22:06)
[2017-07-05] MEDS: HEPARIN SODIUM,PORCINE 5,000 UNIT/ML 1 ML VIAL SQ SCH ×2 (07:37→17:12)
[2017-07-05] MEDS: CYANOCOBALAMIN 1,000 MCG/ML 1 ML VIAL IM SCH (07:37)
[2017-07-05] MEDS: FAMOTIDINE 20 MG/2 ML VIAL IV SCH (07:38)
[2017-07-05] MEDS: ALVIMOPAN 12 MG CAPSULE PO SCH ×2 (07:38→22:05)
[2017-07-05] MEDS: amLODIPine 5 MG TAB PO SCH (07:38)
[2017-07-05 08:13] LABS: Anisocytosis Moderate; Basophils % (A) 0 %; Eosinophils # (A) 0.5 k/uL (0-0.7); Eosinophils % (A) 7 %; HCT 32.7 % (34.0-46.0); Hypochromasia Marked; Lymphocytes % (A) 14 %; MCHC 29.6 g/dL (31.0-37.0); MCV 74.5 fL (80.0-100.0); Mean Platelet Volume 6.3; Microcytosis Marked; Monocytes # (A) 0.4 k/uL (0-1.0); Monocytes % (A) 6 %; Neutrophils # (A) 5.1 k/uL (1.3-7.7); Neutrophils % (A) 73 %; Platelet Count 386 k/uL (150-450); Poikilocytosis Marked; RBC 4.39 m/uL (3.80-5.40); RDW 23.4 % (11.5-15.5)
[2017-07-05 08:25] LABS: HGB 9.7 gm/dL (11.4-16.0)
[2017-07-05 08:44] LABS: Anion Gap 8 mmol/L; Blood Urea Nitrogen 7 mg/dL (7-17); Calcium 9.3 mg/dL (8.4-10.2); Carbon Dioxide 26 mmol/L (22-30); Chloride 106 mmol/L (98-107); Glucose 89 mg/dL (74-99); Phosphorus 3.7 mg/dL (2.5-4.5); Sodium 140 mmol/L (137-145)
[2017-07-05 08:52] LABS: Potassium 4.3 mmol/L (3.5-5.1)
[2017-07-05] MEDS ORDERED: amLODIPine 5 MG TAB PO SCH (09:00)
--- NOTE | 2017-07-05 10:35 | P.PN ---
Subjective Progress Note Date: 07/05/17 Principal diagnosis: Passed out. Still not eating well, no gas or bowel movement. No significant pain. Objective - Vital Signs Vital signs: Vital Signs Temp 98.4 F 07/05/17 07:00 Pulse 76 07/05/17 07:00 Resp 18 07/05/17 07:00 BP 174/72 07/05/17 07:00 Pulse Ox 93 L 07/05/17 07:00 Intake & Output 07/04/17 07/05/17 07/05/17 18:59 06:59 18:59 Intake Total 342.2 310 Output Total 1000 300 Balance -657.8 10 Weight 61.9 kg Intake: Intake, IV Titration 32.2 Amount Bupivacaine (Pf) 0.5% 31. 32.2 3 ml Hydromorphone (Pf) 5 mg In Sodium Chloride 0. 9% 218 ml @ Per Protocol EPIDURAL .Q0M PRN Rx#: [id number] Blood Product 310 310 Rc As-1 Unit 310 [id number] Rc As-3 Unit 0 310 [id number] Output: Urine 1000 300 Uretheral (Villeda) 1000 Other: Voiding Method Indwelling Catheter Bedside Commode Bedside Commode # Voids 1 1 - Exam Constitutional: vital signs stable, Not in acute distress, pleasant, conversant Lungs: Clear to auscultation bilaterally, clear to percussion, normal respiratory effort no use of accessory muscles Cardiovascular: Regular rate and rhythm, no murmurs, no gallops, no rubs, no peripheral edema Gastrointestinal: Soft, minimal discomfort upon palpation around surgical site which is appropriate for postop, surgical dressings +. No erythema over the exposed portions of the skin. Bowel sounds are sluggish, no distention Extremities: No digital cyanosis or clubbing, peripheral pulses palpable and equal over bilateral radial arteries and dorsalis pedis artery, no calf muscle tenderness Psych: Alert, oriented to place, person and time - Labs CBC & Chem 7: 07/05/17 07:19 07/05/17 07:19 Labs: Abnormal Lab Results - Last 24 Hours (Table) 07/04/17 07/05/17 Range/Units 09:03 07:19 Hgb 9.7 L D (11.4-16.0) gm/dL Hct 32.7 L (34.0-46.0) % MCV 74.5 L (80.0-100.0) fL MCH 22.0 L (25.0-35.0) pg MCHC 29.6 L (31.0-37.0) g/dL RDW 23.4 H (11.5-15.5) % Crossmatch See Detail Assessment and Plan Plan: 1# 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 surgery following Still await pathology results, high suspicion for cancer 2# Severe symptomatic iron deficiency anemia This is most likely secondary to above Patient is status post 4 units blood transfusion Continue to monitor Continue with iron replacement therapy. 3# Hypophosphatemia Replaced 4# Benign hypertension, new onset Continue Norvasc Continue to monitor 5# Moderate protein calorie malnutrition/Lack of appetite: Most likely second to underlying possible cancer Start remeron 15mg q hs. Ensure. DVT prophylaxis on heparin subcu
--- NOTE | 2017-07-05 11:51 | P.PN ---
Subjective Progress Note Date: 07/05/17 77-year-old female seen and examined currently sitting up in a chair family at bedside. Patient's family has multiple questions regarding the treatment plan when the path report will be back. Did note that the esophagus biopsy path report show chronic esophagitis And Right colon poorly differentiated adenocarcinoma. The colon And segmental liver are pending. Patient states that she has been up ambulating in the hallway. According to the patient she has not had a bowel movement today did have one bowel movement yesterday urinating no difficulty reports no nausea no vomiting Objective - Vital Signs Vital signs: Vital Signs Temp 98.4 F 07/05/17 07:00 Pulse 76 07/05/17 07:00 Resp 18 07/05/17 07:00 BP 174/72 07/05/17 07:00 Pulse Ox 93 L 07/05/17 07:00 Intake & Output 07/04/17 07/05/17 07/05/17 18:59 06:59 18:59 Intake Total 342.2 310 Output Total 1000 300 Balance -657.8 10 Weight 61.9 kg Intake: Intake, IV Titration 32.2 Amount Bupivacaine (Pf) 0.5% 31. 32.2 3 ml Hydromorphone (Pf) 5 mg In Sodium Chloride 0. 9% 218 ml @ Per Protocol EPIDURAL .Q0M PRN Rx#: [id number] Blood Product 310 310 Rc As-1 Unit 310 [id number] Rc As-3 Unit 0 310 [id number] Output: Urine 1000 300 Uretheral (Villeda) 1000 Other: Voiding Method Indwelling Catheter Bedside Commode Bedside Commode # Voids 1 1 - Exam Physical exam 77-year-old female sitting up in a chair family at bedside pleasant cooperative oriented 3 Lungs adequate air movement bilaterally no shortness of breath noted Heart S1-S2 audible regular Abdomen surgical dressing sites dry surgical tenderness appropriate. A few Hypoactive bowel tones no nausea no vomiting none distended Extremities no edema noted - Labs CBC & Chem 7: 07/05/17 07:19 07/05/17 07:19 Labs: Abnormal Lab Results - Last 24 Hours (Table) 07/04/17 07/05/17 Range/Units 09:03 07:19 Hgb 9.7 L D (11.4-16.0) gm/dL Hct 32.7 L (34.0-46.0) % MCV 74.5 L (80.0-100.0) fL MCH 22.0 L (25.0-35.0) pg MCHC 29.6 L (31.0-37.0) g/dL RDW 23.4 H (11.5-15.5) % Crossmatch See Detail Assessment and Plan Assessment: Impression Symptomatic anemia severe iron deficiency Moderate protein calorie malnutrition with muscle wasting Right colon mass suspicious for adrenal carcinoma Status post June right colectomy, liver biopsy for the right colon tumor Pathology report received on July 02 right colon biopsy poorly differentiated adenocarcinoma, colon biopsy path report pending Plan Increase activity Follow up on path report Continue postop surgical care Pain control DVT and GI prophylaxis Further recommendations pending will follow The above impression and plan of care have been discussed and directed by signing physician. Claudia Shaikh nurse practitioner acting as scribe for signing physician.
[2017-07-05] MEDS ORDERED: BISACODYL 10 MG SUPP RECTAL STA (13:31)
[2017-07-05] MEDS: SENNOSIDES 8.6 MG TAB PO SCH ×2 (17:12→22:05)
[2017-07-05] MEDS: FAMOTIDINE 20 MG TAB PO SCH (22:05)
[2017-07-05] MEDS: MIRTAZAPINE 15 MG TAB PO SCH (22:05)
[2017-07-05] MEDS ORDERED: ACETAMINOPHEN TAB 325 MG TAB PO PRN (22:21)
[2017-07-06] MEDS: HEPARIN SODIUM,PORCINE 5,000 UNIT/ML 1 ML VIAL SQ SCH ×4 (00:27→23:29)
[2017-07-06 01:02] LABS: Appearance,Urine Cloudy (Clear); Bacteria,Urine Occasional /hpf; Bilirubin,Urine Negative (Negative); Blood,Urine Trace (Negative); Budding Yeast,Urine Few /hpf; Color,Urine Yellow; Glucose,Urine (UA) Negative (Negative); Ketones,Urine Negative (Negative); Leukocyte Esterase,Urine Large (Negative); Mucus,Urine Rare /hpf; Nitrite,Urine Negative (Negative); Protein,Urine Negative (Negative); RBC,Urine 2 /hpf (0-5); Specific Gravity,Urine 1.007 (1.001-1.035); Squamous Epithelial Cell,Urine 2 /hpf (0-4); Transitional Epi Cells,Urine <1 /hpf (0-1); WBC,Urine 126 /hpf (0-5)
[2017-07-06 08:06] LABS: Anion Gap 9 mmol/L; Blood Urea Nitrogen 7 mg/dL (7-17); Calcium 9.5 mg/dL (8.4-10.2); Carbon Dioxide 27 mmol/L (22-30); Chloride 106 mmol/L (98-107); Glucose 86 mg/dL (74-99); Magnesium 1.7 mg/dL (1.6-2.3); Phosphorus 4.5 mg/dL (2.5-4.5); Sodium 142 mmol/L (137-145)
[2017-07-06 08:11] LABS: Anisocytosis Moderate; Basophils % (A) 0 %; Eosinophils # (A) 0.5 k/uL (0-0.7); Eosinophils % (A) 6 %; HCT 33.5 % (34.0-46.0); HGB 9.8 gm/dL (11.4-16.0); Hypochromasia Marked; Lymphocytes # (A) 1.3 k/uL (1.0-4.8); Lymphocytes % (A) 17 %; MCH 21.8 pg (25.0-35.0); MCHC 29.3 g/dL (31.0-37.0); MCV 74.5 fL (80.0-100.0); Mean Platelet Volume 6.3; Microcytosis Marked; Monocytes # (A) 0.4 k/uL (0-1.0); Monocytes % (A) 6 %; Neutrophils # (A) 5.4 k/uL (1.3-7.7); Neutrophils % (A) 70 %; Platelet Count 387 k/uL (150-450); Poikilocytosis Marked; RBC 4.49 m/uL (3.80-5.40); RDW 23.9 % (11.5-15.5); WBC 7.7 k/uL (3.8-10.6)
[2017-07-06] MEDS: CYANOCOBALAMIN 1,000 MCG/ML 1 ML VIAL IM SCH (09:24)
[2017-07-06] MEDS: POTAS-SOD-PHOS 278-164-250 MG 1 EACH PACKET PO SCH ×3 (09:24→20:22)
[2017-07-06] MEDS: SENNOSIDES 8.6 MG TAB PO SCH ×2 (09:25→20:22)
[2017-07-06] MEDS: FERROUS SULFATE 325 MG TAB PO SCH ×2 (09:25→17:36)
[2017-07-06] MEDS: ALVIMOPAN 12 MG CAPSULE PO SCH ×2 (09:25→20:22)
[2017-07-06] MEDS: amLODIPine 5 MG TAB PO SCH (09:25)
[2017-07-06] MEDS: FAMOTIDINE 20 MG TAB PO SCH (09:25)
[2017-07-06] MEDS: cefTRIAXone IN SWFI 1,000 MG/10 ML SYRINGE IVP SCH (09:30)
--- NOTE | 2017-07-06 11:09 | P.PN ---
Subjective Progress Note Date: 07/06/17 Principal diagnosis: Passed out. Patient had severe nausea and vomiting last night. She was also febrile with a temp up to 101.9. No chest pain or sob. She had watery explosive BM but that was after she was given some laxatives. Objective - Vital Signs Vital signs: Vital Signs Temp 98.5 F 07/06/17 07:00 Pulse 74 07/06/17 07:00 Resp 20 07/06/17 07:00 BP 152/70 07/06/17 07:00 Pulse Ox 93 L 07/06/17 07:00 Intake & Output 07/05/17 07/06/17 07/06/17 18:59 06:59 18:59 Intake Total 120 Balance 120 Weight 61.9 kg Intake: Oral 120 Other: Voiding Method Bedside Commode Bedside Commode Bedside Commode # Voids 6 4 # Bowel Movements 1 4 - Exam Constitutional: vital signs stable, Not in acute distress, pleasant, conversant Lungs: Clear to auscultation bilaterally, clear to percussion, normal respiratory effort no use of accessory muscles Cardiovascular: Regular rate and rhythm, no murmurs, no gallops, no rubs, no peripheral edema Gastrointestinal: Soft, minimal discomfort upon palpation around surgical site which is appropriate for postop, surgical dressings +. No erythema over the exposed portions of the skin. Bowel sounds are sluggish, no distention Extremities: No digital cyanosis or clubbing, peripheral pulses palpable and equal over bilateral radial arteries and dorsalis pedis artery, no calf muscle tenderness Psych: Alert, oriented to place, person and time - Labs CBC & Chem 7: 07/06/17 07:14 07/06/17 07:14 Labs: Abnormal Lab Results - Last 24 Hours (Table) 07/05/17 07/06/17 Range/Units 23:05 07:14 Hgb 9.8 L (11.4-16.0) gm/dL Hct 33.5 L (34.0-46.0) % MCV 74.5 L (80.0-100.0) fL MCH 21.8 L (25.0-35.0) pg MCHC 29.3 L (31.0-37.0) g/dL RDW 23.9 H (11.5-15.5) % Urine Appearance Cloudy H (Clear) Urine Blood Trace H (Negative) Ur Leukocyte Esterase Large H (Negative) Urine WBC 126 H (0-5) /hpf Urine WBC Clumps Few H (None) /hpf Urine Bacteria Occasional H (None) /hpf Urine Mucus Rare H (None) /hpf Urine Yeast (Budding) Few H (None) /hpf Assessment and Plan Plan: 1# Right near obstructive cecal mass status post right colectomy postoperative day #4 Advance diet to regular Continue with supportive care Gen. surgery following Pathology results reviewed--adenocarcinoma of the colon, liver biopsy benign. 2# Severe symptomatic iron deficiency anemia This is most likely secondary to above Patient is status post 4 units blood transfusion Hgb stable. Continue with iron replacement therapy. 3# New onset fever, acute catheter related UTI: Start ceftriaxone 1gm IV daily. Urine cultures 4# Benign hypertension, new onset Uncontrolled Increase Norvasc to 10mg daily. 5# Moderate protein calorie malnutrition/Lack of appetite: Most likely second to colon cancer Continue remeron 15mg q hs. Ensure. DVT prophylaxis on heparin subcu
--- NOTE | 2017-07-06 13:01 | P.PN ---
Subjective Progress Note Date: 07/06/17 77-year-old female seen and examined. Did note the temp was 11.9 at 10:00 last night current temp is 98.5 white count 7.7 Family at bedside. Patient states that she cannot drink the ensure does not like the taste. Patient states she has been eating there's been no nausea no vomiting. Patient states she's been up ambulating in the hallway and has had a bowel movement Status post June right colectomy, liver biopsy for the right colon tumor Objective - Vital Signs Vital signs: Vital Signs Temp 98.5 F 07/06/17 07:00 Pulse 74 07/06/17 07:00 Resp 20 07/06/17 07:00 BP 152/70 07/06/17 07:00 Pulse Ox 93 L 07/06/17 07:00 Intake & Output 07/05/17 07/06/17 07/06/17 18:59 06:59 18:59 Intake Total 120 Balance 120 Weight 61.9 kg Intake: Oral 120 Other: Voiding Method Bedside Commode Bedside Commode Bedside Commode # Voids 6 4 # Bowel Movements 1 4 - Exam Physical exam 77-year-old female sitting up in a chair family at bedside pleasant cooperative oriented 3 reports feeling tired out this morning Lungs adequate air movement bilaterally no shortness of breath noted no cough noted Heart S1-S2 audible regular Abdomen surgical dressing sites dry surgical tenderness appropriate. A few Hypoactive bowel tones no nausea no vomiting none distended Extremities no edema noted - Labs CBC & Chem 7: 07/06/17 07:14 07/06/17 07:14 Labs: Abnormal Lab Results - Last 24 Hours (Table) 07/05/17 07/06/17 Range/Units 23:05 07:14 Hgb 9.8 L (11.4-16.0) gm/dL Hct 33.5 L (34.0-46.0) % MCV 74.5 L (80.0-100.0) fL MCH 21.8 L (25.0-35.0) pg MCHC 29.3 L (31.0-37.0) g/dL RDW 23.9 H (11.5-15.5) % Urine Appearance Cloudy H (Clear) Urine Blood Trace H (Negative) Ur Leukocyte Esterase Large H (Negative) Urine WBC 126 H (0-5) /hpf Urine WBC Clumps Few H (None) /hpf Urine Bacteria Occasional H (None) /hpf Urine Mucus Rare H (None) /hpf Urine Yeast (Budding) Few H (None) /hpf Assessment and Plan Assessment: Impression Symptomatic anemia severe iron deficiency Moderate protein calorie malnutrition with muscle wasting Right colon mass suspicious for adrenal carcinoma Status post June right colectomy, liver biopsy for the right colon tumor Pathology report received on July 02 right colon biopsy poorly differentiated adenocarcinoma, colon biopsy path report pending Postop febrile Moderate protein calorie malnutrition likely due to colon cancer Plan Increase activity Follow up on path report Continue postop surgical care Pain control DVT and GI prophylaxis Further recommendations pending will follow Nutritional supplements dietitian consult The above impression and plan of care have been discussed and directed by signing physician. Claudia Shaikh nurse practitioner acting as scribe for signing physician.
--- NOTE | 2017-07-06 18:03 | P.PN ---
Subjective Progress Note Date: 07/06/17 The patient is progressing well post surgery with no significant complications noted. Bowel function is now satisfactory and appetite is improving, but still somewhat unsatisfactory per the patient. She still complains of weakness but feels that she is getting better and is planning on going home. Objective - Vital Signs Vital signs: Vital Signs Temp 99.8 F H 07/06/17 15:00 Pulse 83 07/06/17 15:00 Resp 20 07/06/17 15:00 BP 162/75 07/06/17 15:00 Pulse Ox 92 L 07/06/17 15:00 Intake & Output 07/05/17 07/06/17 07/06/17 18:59 06:59 18:59 Intake Total 120 Balance 120 Weight 61.9 kg Intake: Oral 120 Other: Voiding Method Bedside Commode Bedside Commode Bedside Commode # Voids 6 4 # Bowel Movements 1 4 2 - Constitutional General appearance: Present: no acute distress - EENT Eyes: Present: EOMI, PERRLA ENT: Present: hearing grossly normal, normal oropharynx - Respiratory Respiratory: bilateral: CTA - Cardiovascular Rhythm: regular Heart sounds: normal: S1, S2 - Gastrointestinal Gastrointestinal Comment(s): Incision line covered with bandage General gastrointestinal: Present: normal bowel sounds, soft - Integumentary Integumentary: Present: normal - Neurologic Neurologic: Present: CNII-XII intact - Musculoskeletal Musculoskeletal: Present: generalized weakness, strength equal bilaterally - Psychiatric Psychiatric: Present: A&O x's 3, appropriate affect - Labs CBC & Chem 7: 07/06/17 07:14 07/06/17 07:14 Labs: Abnormal Lab Results - Last 24 Hours (Table) 07/05/17 07/06/17 Range/Units 23:05 07:14 Hgb 9.8 L (11.4-16.0) gm/dL Hct 33.5 L (34.0-46.0) % MCV 74.5 L (80.0-100.0) fL MCH 21.8 L (25.0-35.0) pg MCHC 29.3 L (31.0-37.0) g/dL RDW 23.9 H (11.5-15.5) % Urine Appearance Cloudy H (Clear) Urine Blood Trace H (Negative) Ur Leukocyte Esterase Large H (Negative) Urine WBC 126 H (0-5) /hpf Urine WBC Clumps Few H (None) /hpf Urine Bacteria Occasional H (None) /hpf Urine Mucus Rare H (None) /hpf Urine Yeast (Budding) Few H (None) /hpf Assessment and Plan (1) Colon cancer Narrative/Plan: The patient's pathology is now resulted. The report was reviewed, and discussed in detail with the patient along with implications. The patient appears to have a T3 tumor with no evidence of lymph node involvement. Lymph node sampling was adequate. The liver biopsy did not show metastasis. The patient does appears to have stage II disease. She was advised that usually in this group, there is no benefit from additional adjuvant chemotherapy. However there is a percentage of patients, who may have higher risk disease were chemotherapy may be beneficial. To try to clarify that, and Oncotype colon Testing can be ordered. The patient would be a reasonable candidate for the same given the large size and high-grade of the tumor. She was agreeable to the same. The patient was advised, that even if adjuvant chemotherapy was needed, it would not start for at least 4-6 weeks after surgery to permit adequate healing and recovery of performance status. She will therefore follow-up in the office in about 3 weeks with a PET scan be performed prior to that. Office will call to set up those appointments. From our standpoint she can be discharged whenever felt to be okay for the same by the admitting service. Current Visit: Yes Status: Acute Code(s): C18.9 - MALIGNANT NEOPLASM OF COLON, UNSPECIFIED SNOMED Code(s): 214002493 (2) Iron deficiency anemia Narrative/Plan: This is expected to improve, now that the source of bleeding specifically the colon tumor, has been removed. The patient is currently on oral iron supplementation and it is recommended that she be continued on that as an outpatient. She will be monitored for response in the office. Current Visit: Yes Status: Acute Code(s): D50.9 - IRON DEFICIENCY ANEMIA, UNSPECIFIED SNOMED Code(s): 35590642
[2017-07-06] MEDS: MIRTAZAPINE 15 MG TAB PO SCH (20:22)
[2017-07-07 07:37] LABS: Anisocytosis Marked; HCT 35.5 % (34.0-46.0); HGB 10.4 gm/dL (11.4-16.0); Hypochromasia Marked; MCH 21.8 pg (25.0-35.0); MCHC 29.3 g/dL (31.0-37.0); MCV 74.4 fL (80.0-100.0); Mean Platelet Volume 7.1; Microcytosis Marked; Platelet Count 387 k/uL (150-450); Poikilocytosis Moderate; RBC 4.76 m/uL (3.80-5.40); WBC 7.2 k/uL (3.8-10.6)
[2017-07-07 07:47] LABS: Anion Gap 9 mmol/L; Blood Urea Nitrogen 9 mg/dL (7-17); Calcium 9.7 mg/dL (8.4-10.2); Carbon Dioxide 28 mmol/L (22-30); Chloride 105 mmol/L (98-107); Glucose 83 mg/dL (74-99); Magnesium 1.8 mg/dL (1.6-2.3); Phosphorus 4.1 mg/dL (2.5-4.5); Potassium 3.9 mmol/L (3.5-5.1); Sodium 142 mmol/L (137-145)
[2017-07-07] MEDS: cefTRIAXone IN SWFI 1,000 MG/10 ML SYRINGE IVP SCH (08:09)
[2017-07-07] MEDS: FERROUS SULFATE 325 MG TAB PO SCH (08:09)
[2017-07-07] MEDS: HEPARIN SODIUM,PORCINE 5,000 UNIT/ML 1 ML VIAL SQ SCH (08:09)
[2017-07-07] MEDS: ALVIMOPAN 12 MG CAPSULE PO SCH (08:09)
[2017-07-07] MEDS: SENNOSIDES 8.6 MG TAB PO SCH (08:10)
[2017-07-07 08:44] VITALS: BP 179/80; PULSE 76; RESP 18; TEMP 98.4
[2017-07-07] MEDS ORDERED: FAMOTIDINE 20 MG TAB PO SCH (09:00)
[2017-07-07] MEDS ORDERED: amLODIPine 10 MG TAB PO SCH (09:00)
--- NOTE | 2017-07-07 10:35 | P.PN ---
Subjective Progress Note Date: 07/07/17 Principal diagnosis: Postop right colectomy Patient is approximate 1 week postoperative from a right colectomy. She is doing well at this time. Her appetite is improving. She states the food has poor taste. T-max 99.9. Her blood cell count 7.2. Energy level improving. Objective - Vital Signs Vital signs: Vital Signs Temp 98.4 F 07/07/17 07:00 Pulse 76 07/07/17 07:00 Resp 18 07/07/17 07:00 BP 179/80 07/07/17 07:00 Pulse Ox 93 L 07/07/17 07:00 Intake & Output 07/06/17 07/07/17 07/07/17 18:59 06:59 18:59 Other: Voiding Method Bedside Commode Bedside Commode Bedside Commode # Voids 1 # Bowel Movements 2 - Exam Abdomen: Soft, nondistended, nontender, dressing intact - Labs CBC & Chem 7: 07/07/17 06:52 07/07/17 06:52 Labs: Abnormal Lab Results - Last 24 Hours (Table) 07/07/17 Range/Units 06:52 Hgb 10.4 L (11.4-16.0) gm/dL MCV 74.4 L (80.0-100.0) fL MCH 21.8 L (25.0-35.0) pg MCHC 29.3 L (31.0-37.0) g/dL RDW 26.0 H (11.5-15.5) % Microbiology - Last 24 Hours (Table) 07/06/17 17:00 Urine Culture - Preliminary Urine,Voided 07/05/17 23:42 Blood Culture - Preliminary Blood No Growth after 24 hours 07/05/17 22:32 Blood Culture - Preliminary Blood No Growth after 24 hours Assessment and Plan (1) Cecum mass Narrative/Plan: Continue to increase activity. Anticipate discharge per medicine in the next 24 -48 hours. Current Visit: Yes Status: Acute Priority: High Code(s): K63.9 - DISEASE OF INTESTINE, UNSPECIFIED SNOMED Code(s): 659367124
--- NOTE | 2017-07-07 12:15 | P.DS ---
Providers Date of admission: 06/28/17 13:35 Expected date of discharge: 07/07/17 Attending physician: Trung Ellison MD Consults: 06/28/17 13:42 Consult Physician Routine Consulting Provider: Zoran Gross Consult Reason/Comments: symptomatic anemia Do you want consulting provider notified?: Yes 06/29/17 07:59 Consult Physician Routine Consulting Provider: Dylon Lee Consult Reason/Comments: cecal and TI mass Do you want consulting provider notified?: Yes Primary care physician: Stated None Hospital Course: 77-year-old female with no significant past medical history and usually does not follow up with ''doctors'' presented to the ER via EMS with chief complaint of passing out. Apparently the patient was at [employer] doing some shopping when she became lightheaded and dizzy and reportedly passed out, there was no reports of head trauma and the patient denied any pain, she was apparently out for up to 10 minutes, there is no loss of bowel or bladder control. EMS described the patient was pale and diaphoretic. She had been complaining of increasing weakness and fatigue and has been having a poor appetite and reports approximately 40 pound unintentional weight loss over the last year, she denied any smoking, or drinking, no abdominal pain, no bright red blood per rectum or dark melanotic stools. In the ER the patient was noted to have a significant macrocytic anemia with a hemoglobin of 5.9 and was slightly tachycardic in the low 100s. Hemoccult was negative. She was subsequently admitted to the hospital for further evaluation and management. She had an EGD and colonoscopy that showed right colon tumor with near obstruction. She was evaluated by general surgery who did right colectomy with liver biopsy for some suspicious liver cysts/lesions. Anemia workup revealed severe iron deficiency, iron replacement therapy was initiated. Later in the hospitalization and after surgery she required 2 more units of blood transfusion for Hgb of 6.7. Her Hgb came up with that to around 10 on the day of discharge. Thoughout the hospitalization her BP was elevated, she never recieved any treatment for HTN in the past. She was started on treatment with norvasc. Her appetite was down from the suspected cancer and was started on remeron to stimulate it and she responded well to that. 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 The liver biopsy was negative for any cancer. Patient was evaluated by oncology, Dr. Gross recommended further genetic testing on the tumor to see if patient will require chemo. Patient will follow up in the office with him in few weeks, she is aware. Towards the end of the hospitalization she spiked a fever of around 102. At that time she had a lópez cath in place which was properly placed during the period of the post-operative recovery. UA was positive so she was started on ceftriaxone 1gm IV daily. Upon discharge she will be prescribed ciprofloxacin. Patient has not spiked any more fevers after antibiotics were started. Her urine cultures are still pending currently. Patient's diet was advanced by general surgery to regular. She is currently tolerating the diet well and will be discharged home in a stable condition. She was ambulated around the [place] and did well walking by herself. Time for discharge 40min. Patient Condition at Discharge: Stable Plan - Discharge Summary Discharge Rx Participant: Yes New Discharge Prescriptions: New amLODIPine [Norvasc] 10 mg PO DAILY 30 Days #30 tab Ciprofloxacin HCl [Cipro] 500 mg PO Q12HR 10 Days #20 tablet Ferrous Sulfate [Iron (65 MG Elemental)] 325 mg PO BID-W/MEALS 30 Days #60 tab Mirtazapine [Remeron] 15 mg PO HS 30 Days #30 tab Continue Ibuprofen [Advil] 200 mg PO Q8HR PRN PRN Reason: Pain Discharge Medication List Ibuprofen [Advil] 200 mg PO Q8HR PRN 06/28/17 [History] Ciprofloxacin HCl [Cipro] 500 mg PO Q12HR 10 Days #20 tablet 07/07/17 [Rx] Ferrous Sulfate [Iron (65 MG Elemental)] 325 mg PO BID-W/MEALS 30 Days #60 tab 07/07/17 [Rx] Mirtazapine [Remeron] 15 mg PO HS 30 Days #30 tab 07/07/17 [Rx] amLODIPine [Norvasc] 10 mg PO DAILY 30 Days #30 tab 07/07/17 [Rx] Follow up Appointment(s)/Referral(s): Zoran Gross MD [STAFF PHYSICIAN] - 07/27/17 3:30 pm (Will see Dr. Mercado this day and his N.P will call with pet scan ) None,Stated [Primary Care Provider] - 1-2 days Dylon Lee MD [STAFF PHYSICIAN] - 1 Week
--- NOTE | 2017-07-18 15:46 | CDI ---
Last Revision, May 2017 Documentation Clarification Form Date: 07/18/2017 3:11:00 PM From: Rosita Rivero Phone: Admit Date: 06/28/2017 1:35:00 PM Patient Name: Leyda Santos Visit Number: [id number] Discharge Date: 07/07/17 ATTENTION: The Clinical Documentation Specialists (CDI) and [facility] Coding Staff appreciate your assistance in clarifying documentation. Please respond to the clarification below the line at the bottom and electronically sign. The CDI & [facility] Coding staff will review the response and follow-up if needed. Please note: Queries are made part of the Legal Health Record. If you have any questions, please contact the author of this message via ITS. Dr. Kirsten Poon Acute catheter related UTI documented in 07/06 PN. Clinical Indicators: Villeda in place since approx 07/02 Lab findings: 07/05 Urine-cloudy, trace blood, large UR leukocyte esterace, WBC 126, WBC clumps few, urine bacteria occasional, urine mucous rare & urine yeast few 07/06 - Final urine culture no growth Vital Signs: 07/05-temp 101.9 Treatment: IV Ceftriazone In your professional opinion, can you please clarify the likely cause of the fever based on negative urine cath results? Catheter related UTI despite negative culture results Urinary tract infection unrelated to catheter Other, please specify Unable to determine If you have a question about this query, please contact Julieta Somers, Fabrication Operator, Izabella Baumann at [phone] between 8am and 5pm. Please continue to document in your progress notes and discharge summary in order to capture severity of illness and risk of mortality. Include clinical findings that support your diagnosis. Catheter related UTI was ruled out. CHEN
== END 2017-07-07 13:10 | disposition home or self-care (01) | DRG 330 ==
LOC: EDBD → EC 10:34 → 6SEL 13:35 → 5ONC 07-02 19:25
PROVIDERS: ADMIT Family Medicine; ATTEND Family Medicine
PROC: 30233N1 Transfusion of Nonautologous Red Blood Cells into Peripheral Vein, Percutaneous Approach (ICD-10-PCS; 2017-06-28)
PROC: 0DB58ZZ Excision of Esophagus, Via Natural or Artificial Opening Endoscopic (ICD-10-PCS; 2017-06-30)
PROC: 0DBP8ZX Excision of Rectum, Via Natural or Artificial Opening Endoscopic, Diagnostic (ICD-10-PCS; 2017-06-30)
PROC: 0DBF8ZX Excision of Right Large Intestine, Via Natural or Artificial Opening Endoscopic, Diagnostic (ICD-10-PCS; 2017-06-30)
PROC: 0DB98ZX Excision of Duodenum, Via Natural or Artificial Opening Endoscopic, Diagnostic (ICD-10-PCS; 2017-06-30 07:30)
PROC: 0FB00ZX Excision of Liver, Open Approach, Diagnostic (ICD-10-PCS; 2017-07-01)
PROC: 0DTF0ZZ Resection of Right Large Intestine, Open Approach (ICD-10-PCS; principal; 2017-07-01 07:30)
DX: C18.2 Malignant neoplasm of ascending colon (principal); E44.0 Moderate protein-calorie malnutrition; K76.89 Other specified diseases of liver; E83.39 Other disorders of phosphorus metabolism; R15.9 Full incontinence of feces; D50.9 Iron deficiency anemia, unspecified; I10 Essential (primary) hypertension; K29.60 Other gastritis without bleeding; K31.7 Polyp of stomach and duodenum; K44.9 Diaphragmatic hernia without obstruction or gangrene; K62.1 Rectal polyp; K64.8 Other hemorrhoids; K59.00 Constipation, unspecified; K21.0 Gastro-esophageal reflux disease with esophagitis; E53.8 Deficiency of other specified B group vitamins; K57.30 Diverticulosis of large intestine without perforation or abscess without bleeding; Z98.42 Cataract extraction status, left eye; Z98.41 Cataract extraction status, right eye; Z96.1 Presence of intraocular lens; W18.30XA Fall on same level, unspecified, initial encounter; Y92.512 Supermarket, store or market as the place of occurrence of the external cause
CPT/HCPCS: 36415; 43239; 45380; 45385; 70450; 71046; 74176; 80048; 80053; 81001; 82272; 82378; 82550; 82553; 82607; 82728; 82747; 83540; 83550; 83735; 84100; 84443; 84484; 85025; 85027; 85045; 85610; 85730; 86850; 86900; 86901; 86920; 87040; 87086; 87324; 88305; 88307; 88309; 88341; 88342; 93005; 93306; 96360; 96361; 99285

== ENCOUNTER → 2017-07-21 | Outpatient (CLI) | payer MEDICARE ==
--- NOTE | 2017-07-21 20:19 | PE ---
EXAMINATION TYPE: PET CT fusion skull to thigh DATE OF EXAM: 07/21/2017 COMPARISON: CT abdomen and pelvis June 28, 2017 HISTORY: Colon cancer initial staging study after surgery July 01, 2017 TECHNIQUE: Following the intravenous administration of 13.81 mCi of F-18 FDG, whole body images are performed from the skull base to the midthigh. Images are reviewed on the computer in the coronal, a xial, and sagittal planes. Reconstructed rotating images are created on independent workstation and reviewed on the computer. A noncontrast CT is performed in conjunction with the PET scan. SCAN: Initial Scan FINDINGS: SKULL BASE AND NECK: No suspicious hypermetabolic uptake is seen. CHEST, MEDIASTINUM, AND HILAR REGION: No suspicious hypermetabolic uptake is seen. ABDOMEN AND PELVIS: There is evidence of interval surgery with new anterior vertical subcutaneous sca r. There are new sutures in the right lower quadrant at site of partial colectomy and bowel reanastom osis. Mild increase uptake at both levels is presumed related to surgery. No suspicious hypermetaboli c uptake is seen to suggest residual malignancy. No suspicious enlarged or hypermetabolic lymph nodes at this level are noted. OSSEOUS STRUCTURES: No suspicious hypermetabolic uptake is seen. OTHER CT: Nasal septum is deviated to right of midline. There is mild calcified plaque bilateral carotid bulbs. There is moderate apical pleural/parenchymal scarring bilaterally with calcification noted. There is calcified 2 mm nodule right lower lobe axial image 94. There are several simple appearing cysts scattered throughout the liver as well as subcentimeter hypo dense lesions too small to further characterize. No suspicious hypermetabolic hypodense areas to sugg est metastatic disease clearly identified. There is stable small hiatal hernia. There is 1.7 cm simple appearing cyst anteriorly mid pole level left kidney axial image 139 redemonst rated. Sclerosis left aspect sacroiliac joint is redemonstrated without suspicious hypermetabolic uptake. Th ere is disc space narrowing with vacuum disc phenomenon lumbosacral junction. There is facet arthropa thy lower lumbar levels. There is multilevel spurring in the thoracic spine. Fairly moderate joint sp aly loss both hips is redemonstrated. IMPRESSION: Interval successful resection of cecal neoplasm. No suspicious residual hypermetabolic up take is seen to suggest residual or metastatic malignancy.
== END | disposition home or self-care (01) ==
LOC: RADPETMAIN 08:38
PROVIDERS: ATTEND Internal Medicine Hematology & Oncology
DX: C18.9 Malignant neoplasm of colon, unspecified (principal); Z90.49 Acquired absence of other specified parts of digestive tract
CPT/HCPCS: 78815; A9552

== ENCOUNTER → 2018-07-19 | Outpatient (CLI) | payer MEDICARE ==
--- NOTE | 2018-07-19 14:04 | CT ---
EXAMINATION TYPE: CT abdomen pelvis w con DATE OF EXAM: 07/19/2018 COMPARISON: 06/28/2017 INDICATION: Colon Ca DLP: 1128 mGycm, Automated exposure control for dose reduction was used. CONTRAST: 100 mL of Isovue 300. Study performed with Oral Contrast TECHNIQUE: Axial images were obtained from above the diaphragm to the pubic rami in the axial plane a t 5 mm thick sections. Reconstructed images are reviewed on the computer in the coronal plane. FINDINGS: Limited CT sections are obtained the lung bases. The lung bases are clear. There is a small hiatal hernia present. CT ABDOMEN: Liver: There are several hypodensities scattered throughout the liver. The larger of these measure 10 -20 Hounsfield units likely hepatic cysts. Some of the smaller hypodensities are too small to classif y as simple cysts. Spleen: Normal Pancreas: Normal Adrenal glands: The adrenal glands are normal. Gallbladder: Normal Kidneys: No masses are evident. No hydronephrosis is present. Several cysts are present. The larges t measures 2.4 cm on the anterior lateral inferior pole left kidney and 11 Hounsfield units. Delayed images were obtained through the kidneys, which remain unremarkable. Aorta: Vascular calcification is within the aorta. Inferior vena cava: Normal. CT PELVIS: Loops of bowel within the abdomen and pelvis are normal. There are loops of bowel which are incom pletely distended or lack oral contrast limiting their evaluation. Appendix: Not identified. No suspicious tubular structure or inflammatory changes evident. Urinary bladder: Decompressed with limited evaluation Genitourinary structures: Uterus appears normal. Adnexal regions are clear. No free fluid is within t he pelvis. Osseous structures: No suspicious lytic or sclerotic lesions. Some facet degenerative changes within the lumbar spine. IMPRESSIONS: 1. Hepatic and renal cysts. 2. No suspicious changes to suggest metastatic colon cancer.
== END | disposition home or self-care (01) ==
LOC: RADCTMAIN 11:05
PROVIDERS: ATTEND Internal Medicine Hematology & Oncology
DX: C18.2 Malignant neoplasm of ascending colon (principal); N28.1 Cyst of kidney, acquired; K76.89 Other specified diseases of liver
CPT/HCPCS: 82565; 84520; 74177; 36415; Q9967

== ENCOUNTER → 2019-08-01 | Outpatient (CLI) | payer MEDICARE ==
--- NOTE | 2019-08-01 09:51 | CT ---
EXAMINATION TYPE: CT abdomen pelvis w con DATE OF EXAM: 08/01/2019 COMPARISON: 07/18/2018 HISTORY: Colon CA CT DLP: 868.4 mGycm Automated exposure control for dose reduction was used. CONTRAST: CT scan of the abdomen pelvis is performed with IV Contrast, patient injected with 100 mL of Isovue 3 00. FINDINGS- LUNG BASES-stable hypodensities within the liver most likely in the basis of hepatic cysts with the l argest measuring 15 Hounsfield units.. LIVER/GB- No gross abnormality is appreciated. PANCREAS- No gross abnormality is seen. SPLEEN- No gross abnormality is seen. ADRENALS- No gross abnormality is seen. KIDNEYS/BLADDER- No masses are evident. No hydronephrosis is present. Several cysts are present. The largest measures 2.4 cm on the anterior lateral inferior pole left kidney and 11 Hounsfield units. De layed images were obtained through the kidneys, which remain unremarkable. [id number] hiatal hernia. There are areas of wall thickening involving the sigmoid and left colon which could be related to peristalsis and incomplete distention should be correlated clinicall y. LYMPH NODES- No greater than 1cm abdominal or pelvic lymph nodes areappreciated. OSSEOUS STRUCTURES-hypertrophic change and degenerative disc disease noted. Hypertrophic trophic oste itis changes of pubic symphysis greater than left. Arthritic changes of the SI joints.. OTHER- atherosclerotic change aorta which appears of normal caliber. Fat-containing anterior abdomin al wall hernia. IMPRESSION- 1. Hepatic and renal cysts are stable. 2. Areas of wall thickening involving the sigmoid and left colon may be related to incomplete distent ion correlate with direct visualization as clinically warranted.
== END | disposition home or self-care (01) ==
LOC: RADCTMAIN 07:25
PROVIDERS: ATTEND Internal Medicine Hematology & Oncology
DX: K76.89 Other specified diseases of liver (principal); N28.1 Cyst of kidney, acquired; C18.2 Malignant neoplasm of ascending colon
CPT/HCPCS: 82565; 84520; 74177; 36415; Q9967 ×2